=== PATIENT | female | born 1960 | race Hispanic/Latino ===

== ENCOUNTER 2018-10-10 03:56 | Emergency (ER) | payer BC, OTHER ==
[~2018-10-10] VITALS: Ht 162.6 cm; Wt 82.6 kg
[~2018-10-10 03:56] MED LIST: CEFDINIR250 MG/5 M PO; LISINOPRIL20 MG; PANTOPRAZOLE SO40 MG PO
--- OUTSIDE RECORDS SUMMARY | 2018-10-10 03:58 | XMS REPORT | Clinical Summary ---
Author Author MALVIN [facility] Organization [facility] Address Unknown Phone Unavailable Care Team Providers Care Disc Inspector Name Role Phone Yobany--Hermann Lincoln PCP Allergies No Known Allergies Medications End Date Status Medication Sig Dispensed Refills Start Date Active losartan (COZAAR) 50 MG Take 50 mg by 0 tablet mouth daily. Active omeprazole (PRILOSEC) 20 Take 20 mg by 0 MG capsule mouth as needed. Active acetaminophen (TYLENOL) Take 325 mg 0 325 MG tablet by mouth as needed for Pain. Active Problems Problem Noted Date Primary osteoarthritis of left knee 12/25/2017 Acute lateral meniscus tear of left knee, initial encounter 12/25/2017 Encounters Care Team Description Date Type Specialty Kei Santo MD 12/25/2017 Anesthesia Event Thomas Nowak MD ARTHROSCOPY,KNEE MENISCECTOMY 12/25/2017 Surgery Thomas Nowak MD 12/25/2017 Hospital Encounter Thomas Nowak MD 12/19/2017 Hospital Pre-Admission Testing Encounter 12/19/2017 Orders Only General Internal Medicine Paulino Taylor MD 11/26/2017 Anesthesia Event after 10/09/2017 Social History Date Tobacco Use Types Packs/Day Years Used Never Smoker Smokeless Tobacco: Never Used Alcohol Use Drinks/Week oz/Week Comments No Sex Assigned at Date Recorded Not on file Industry Job Start Date Occupation Not on file Not on file Not on file Travel End Travel History Travel Start No recent travel history available. Last Filed Vital Signs Time Taken Vital Sign Reading 12/25/2017 2:00 PM CDT Blood Pressure 94/45 12/25/2017 2:00 PM CDT Pulse 85 12/25/2017 2:00 PM CDT Temperature 36.7 C (98 F) 12/25/2017 2:00 PM CDT Respiratory Rate 17 12/25/2017 2:00 PM CDT Oxygen Saturation 96% - Inhaled Oxygen - Concentration 12/25/2017 7:41 AM CDT Weight 84.4 kg (186 lb) 12/25/2017 7:41 AM CDT Height 160 cm (5' 3") 12/25/2017 7:41 AM CDT Body Mass Index 32.95 Plan of Treatment Not on file Procedures Comments Procedure Name Priority Date/Time Associated Diagnosis ARTHROSCOPY,KNEE 12/25/2017 Tear of lateral meniscus SYNOVECTOMY 8:25 AM CDT of left knee, unspecified tear type, unspecified whether old or current tear, initial encounter Osteoarthritis of left knee, unspecified osteoarthritis type Special Needs (ARTHREX) ARTHROSCOPY,KNEE 12/25/2017 Tear of lateral meniscus CHONDROPLASTY SHAVING 8:25 AM CDT of left knee, unspecified tear type, unspecified whether old or current tear, initial encounter Osteoarthritis of left knee, unspecified osteoarthritis type Special Needs (ARTHREX) ARTHROSCOPY,KNEE 12/25/2017 Tear of lateral meniscus LOOSE/FOREIGN BODY 8:25 AM CDT of left knee, unspecified tear type, unspecified whether old or current tear, initial encounter Osteoarthritis of left knee, unspecified osteoarthritis type Special Needs (ARTHREX) ARTHROSCOPY,KNEE 12/25/2017 Tear of lateral meniscus MENISCECTOMY 8:25 AM CDT of left knee, unspecified tear type, unspecified whether old or current tear, initial encounter Osteoarthritis of left knee, unspecified osteoarthritis type Special Needs (ARTHREX) ECG 12-LEAD Routine 12/19/2017 12:17 PM CDT Procedure Note - Interface, External Ris In - 12/19/2017 1:45 PM CDT Ventricula r Rate 55 BPM Atrial Rate 55 BPM P-R Interval 166 ms QRS Duration 82 ms Q-T Interval 416 ms QTC Calculatio n(Bazett) 397 ms P [place] 37 degrees R [place] -12 degrees T [place] 7 degrees Sinus bradycardi a Low voltage QRS Borderline ECG No previous ECGs available ECG 12-LEAD Routine 12/19/2017 12:17 PM CDT BUN AND CREATININE Routine 12/19/2017 12:16 PM CDT ELECTROLYTE PANEL Routine 12/19/2017 12:16 PM CDT HEMOGLOBIN Routine 12/19/2017 12:16 PM CDT after 10/09/2017 Results * ECG 12 lead (12/19/2017 12:17 PM CDT) Narrative Performed At Ventricular Rate 55 BPM GE MUSE Atrial Rate 55 BPM P-R Interval 166 ms QRS Duration 82 ms Q-T Interval 416 ms QTC Calculation(Bazett) 397 ms P [place] 37 degrees R [place] -12 degrees T [place] 7 degrees Sinus bradycardia Low voltage QRS Borderline ECG No previous ECGs available Confirmed by MD JIMENES JORGE ([id number]) on 12/19/2017 2:06:30 PM Procedure Note Interface, External Ris In - 12/19/2017 2:06 PM CDT Ventricular Rate 55 BPM Atrial Rate 55 BPM P-R Interval 166 ms QRS Duration 82 ms Q-T Interval 416 ms QTC Calculation(Bazett) 397 ms P [place] 37 degrees R [place] -12 degrees T [place] 7 degrees Sinus bradycardia Low voltage QRS Borderline ECG No previous ECGs available Confirmed by MD JIMENES JORGE ([id number]) on 12/19/2017 2:06:30 PM Performing Organization Address City/[facility] Phone Number GE MUSE * BUN and Creatinine (12/19/2017 12:16 PM CDT) BUN 15 7 - 21 mg/dL [facility] Creatinine 0.79 0.57 - 1.25 mg/dL [facility] EGFR 74Comment: ESTIMATED GFR IS mL/min/1.73 sq m [facility] NOT ACCURATE CREATININE [facility] CLEARANCE IN PREDICTING GLOMERULAR FILTRATION RATE. ESTIMATED GFR IS NOT APPLICABLE FOR DIALYSIS PATIENTS. Specimen Blood Performing Organization Address City/[facility]/Zipcode Phone Number [facility] [address] [place] [address] MED[facility]ENTER * Hemoglobin (12/19/2017 12:16 PM CDT) Hemoglobin 12.3 11.2 - 15.7 GM/DL [facility] Specimen Blood Performing Organization Address City/State/Zipcode Phone Number [facility] [address] [place], [place] [phone] [facility] * Electrolytes (12/19/2017 12:16 PM CDT) Sodium 144 136 - 145 meq/L [facility] Potassium 4.9 3.5 - 5.1 meq/L [facility] Chloride 106 98 - 107 meq/L [facility] CO2 30 (H) 22 - 29 meq/L [facility] Specimen Blood Performing Organization Address City/State/Zipcode Phone Number [facility] [address] [place] [address] [facility] after 10/09/2017 Insurance Payer Benefit Subscriber ID Type Phone Address Plan / Group [employer] [email or web address] xxxxxxxxxx [employer] E EXCHANGE Advance Directives For more information, please contact: [address] [address] Date Inactivated Comments Code Status Date Activated 12/25/2017 4:48 PM Full Code 12/25/2017 7:27 AM This code status was determined by: Patient
--- OUTSIDE RECORDS SUMMARY | 2018-10-10 03:59 | XMS REPORT ---
Author Author [facility] Address Unknown Phone Unavailable Care Team Providers Care Carbon Capture Power Plant Engineer Name Role Phone SHALONDA REN Unavailable Unavailable العراقيErnie KIERSTEN Unavailable Unavailable Payers Payer Name Policy Type Policy Number Effective Date Expiration Date Problems This patient has no known problems. Allergies, Adverse Reactions, Alerts Allergy Name Allergy Type Status Severity Reaction(s) Onset Date Inactive Date Treating Clinician Comments gabapentin DA Active [place] 2018-10-09 00:00:00 meclizine DA Active SV 2018-10-09 00:00:00 meclizine DA Active SV 2014-05-30 00:00:00 gabapentin DA Active [place] 2014-05-26 00:00:00 Medications This patient has no known medications. Results Test Description Test Time Test Comments Text Results Atomic Results Result Comments URINALYSIS COMPLETE 2018-10-09 13:49:00 UA COLOR (test code=COLU) YELLOW YELLOW UA APPEARANCE (test code=APPU) CLEAR CLEAR UA GLUCOSE DIPSTICK (test code=DGLUU) NORMAL mg/dL NEGATIVE UA BILIRUBIN DIPSTICK (test code=BILU) NEGATIVE mg/dL NEGATIVE UA KETONE DIPSTICK (test code=KETU) neg mg/dL NEGATIVE UA SPECIFIC GRAVITY (test code=SGU) 1.015 1.001-1.035 UA BLOOD DIPSTICK (test code=FLOYD) 25 (1+) Gustavo/uL NEGATIVE UA PH DIPSTICK (test code=ERIC) 6.5 5.0-8.0 UA PROTEIN DIPSTICK (test code=PROU) neg mg/dL Neg-15 UA UROBILINIOGEN DIPSTICK (test code=URO) norm mg/dL 0.0-0.2 UA NITRITE DIPSTICK (test code=ELODIA) NEGATIVE NEGATIVE UA LEUKOCYTE ESTERASE DIPSTICK (test code=LEUU) 25 (Trace) uL NEGATIVE UA WBC (test code=WBCU) 0-5 per HPF 0-5 IN SOME URINARY TRACT INFECTIONS THERE MAY NOT BE ENOUGHWBCs IN THE URINE TO TRIGGER AN AUTOMATIC (REFLEX) URINECULTURE. A SEPERATE ORDER FOR URINE CULTURE IS RECOMMENDEDIF THERE IS STRONG SUPPORT FOR A URINARY TRACT INFECTIONCLINICALLY. UA RBC (test code=RBCU) 3-5 per HPF 0-5 UA EPITHELIAL CELLS (test code=EPIU) Few (2-5/hpf) per HPF Few UA BACTERIA (test code=BACU) FEW per HPF NONE UA MUCUS (test code=MUCU) FEW per LPF NONE-FEW Urine Source? Clean CatchURINALYSIS [id number] 13:41:00* Test Item Value Reference Range Comments UA COLOR (test code=COLU) YELLOW YELLOW UA APPEARANCE (test code=APPU) CLEAR CLEAR UA GLUCOSE DIPSTICK (test code=DGLUU) NORMAL mg/dL NEGATIVE UA BILIRUBIN DIPSTICK (test code=BILU) NEGATIVE mg/dL NEGATIVE UA KETONE DIPSTICK (test code=KETU) neg mg/dL NEGATIVE UA SPECIFIC GRAVITY (test code=SGU) 1.015 1.001-1.035 UA BLOOD DIPSTICK (test code=FLOYD) 25 (1+) Gustavo/uL NEGATIVE UA PH DIPSTICK (test code=ERIC) 6.5 5.0-8.0 UA PROTEIN DIPSTICK (test code=PROU) neg mg/dL Neg-15 UA UROBILINIOGEN DIPSTICK (test code=URO) norm mg/dL 0.0-0.2 UA NITRITE DIPSTICK (test code=ELODIA) NEGATIVE NEGATIVE UA LEUKOCYTE ESTERASE DIPSTICK (test code=LEUU) 25 (Trace) uL NEGATIVE UA WBC (test code=WBCU) per HPF 0-5 Urine Source? Clean CatchSCR MAMM BILATERAL JALYN CAD [id number] 10:31:05 - SCR MAMM BILATERAL JALYN CAD DIGITALBILATERAL DIGITAL SCREENING MAMMOGRAM 3D/2D WITH CAD: 08/30/2018CLINICAL: Asymptomatic. Digital breast tomosynthesis was p erformed in addition to routine CC and MLO views. Current mammographic images w ere evaluated by either a [employer]rena [employer] Lily M-Vu or a Zmanda ImageChecker CAD (computer ai ded detection system). Comparison is made to exams dated 08/02/2017 mammogram, 07/10/2016 mammogram, and 10/11/2015 mammogram - [facility]-. The tissue of both breasts is heterogeneously dense. This may lower the sensitivity of mammography. There are benign vascular calcifications in both breasts. Ther e also are benign calcifications in the left breast. No suspicious mass, zaira ectural distortion, malignant type calcification, or lymph node abnormality dete cted. Breast architecture is stable compared to prior exams.IMPRESSION: BENIGNT here is no mammographic evidence of malignancy. Resume annual screening mammogra phy in one year. Carline quick/penrad:09/02/2018 10:31:05 Imaging T echnologist: Kathleen CRAIG, [facility]-FWletter sent: BIRADS 1- 2 Normal Mammogram BI-RADS: 2 [id number] 14:13:00* Test Item Value Reference Range Comments SODIUM (BEAKER) (test iymh=624) 144 meq/L 136-145 POTASSIUM (BEAKER) (test avyr=920) 4.9 meq/L 3.5-5.1 CHLORIDE (BEAKER) (test midc=116) 106 meq/L 98-107 CO2 (BEAKER) (test qlkz=975) 30 meq/L 22-29 BUN AND [id number] 14:13:00* Test Item Value Reference Range Comments BLOOD UREA NITROGEN (BEAKER) (test vsht=026) 15 mg/dL 7-21 CREATININE (BEAKER) (test vgyt=678) 0.79 mg/dL 0.57-1.25 EGFR (BEAKER) (test afzy=6556) 74 mL/min/1.73 sq m ESTIMATED GFR IS NOT ACCURATE CREATININE CLEARANCE IN PREDICTING GLOMERULAR FILTRATION RATE. ESTIMATED GFR IS NOT APPLICABLE FOR DIALYSIS PATIENTS. [id number] 13:31:00* Test Item Value Reference Range Comments HEMOGLOBIN (BEAKER) (test kodv=220) 12.3 GM/DL 11.2-15.7 US ABDOMEN COMPLETE [facility] [address] [address] Patient Name: JOHN PULIDO MR #: [id number] : 1960 Age/Sex: 56/F Req #: [id number] Adm Physician: Ordered by: KIERSTEN العراقي MD Report #: [id number] Location: US Room/Bed: Procedure: [id number] US/US ABDOMEN COMPLETE Ex am Date: Exam Time: REPORT STATUS: Signed PROCEDURE: ABDOMINAL ULTRASOUND COMPARISON: 12/14/2016. INDICATIONS: Ab dominal Pain TECHNIQUE: Hartley-scale and color sonographic images were obtai tc of the abdomen in transverse and sagittal planes. FINDINGS: Liver: 11.1 cm in length in right midclavicular line. Small left hepatic s imple cyst is again noted, 8 mm in maximum diameter, unchanged. Normal parenc hymal echogenicity. No masses. Main portal vein: 0.9 cm in caliber. Patent. he patopetal flow Gallbladder: Surgically removed. Common Bile Duct: 0.6 cm in caliber. Right kidney: 10.3 cm in length. Normal renal cortical echoge nicity. No focal mass lesion or hydronephrosis. Left kidney: 11.5 cm in carrie gth. Normal renal cortical echogenicity. No focal mass lesion or hydronephros is. Spleen: 9.3 cm in length. Pancreas: The visualized portions are unre markable. Inferior vena cava: Patent Aorta: Non-aneurysmal Ascites: No ne CONCLUSION: Stable simple cyst in the left hepatic lobe. Sta tus post cholecystectomy. Otherwise unremarkable abdominal ultrasound. Dictated by: Ottoniel Tripathi M.D. on 04/13/2017 at 11:29 Electronically appro yonathan by: Ottoniel Tripathi M.D. on 04/13/2017 at 11:29 Dictated By: BLAKE TRIPATHI MD [id number] Trans cribed By: THU on 04/13/17 1129 COPY TO: KIERSTEN العراقي MD
[2018-10-10 05:30] LABS: BASOPHILS % 0.6 % (0.0-1.0); EOSINOPHILS # (AUTO) 0.1 (0.0-0.4); EOSINOPHILS % 1.3 % (0.0-6.0); HEMATOCRIT 35.4 % (34.2-44.1); HEMOGLOBIN 12.1 g/dL (12.0-16.0); LYMPHOCYTES # (AUTO) 0.7 (1.0-3.2); LYMPHOCYTES % 15.8 % (18.0-39.1); MEAN CORPUSCULAR HEMOGLOBIN 30.1 pg (28-32); MEAN CORPUSCULAR HGB CONC 34.2 g/dL (31-35); MEAN CORPUSCULAR VOLUME 88.1 fL (81-99); MONOCYTES # (AUTO) 0.2 (0.2-0.8); MONOCYTES % 5.1 % (4.4-11.3); NEUTROPHILS # (AUTO) 3.6 (2.1-6.9); PLATELET COUNT 201 x10e3/uL (140-360); RED BLOOD COUNT 4.02 x10e6/uL (3.6-5.1)
[2018-10-10] MEDS ORDERED: LOSARTAN-HCTZ1 EAC2 (05:32)
[2018-10-10] MEDS ORDERED: OMEPRAZOLE40 MG (05:32)
[2018-10-10] MEDS ORDERED: VITAMIN D250000 UNIT (05:32)
[2018-10-10 05:58] LABS: CLARITY,URINE HAZY (CLEAR); COLOR,URINE AMBER (YELLOW)
[2018-10-10 05:59] LABS: LEUKOCYTE ESTERASE ,URINE 2+ (NEGATIVE); NITRITE,URINE NEGATIVE (NEGATIVE)
[2018-10-10 06:00] LABS: KETONES,URINE NEGATIVE (NEGATIVE); PROTEIN,URINE DIPSTICK 1+ (NEGATIVE); URINE UROBILINOGEN 0.2 mg/dL (0.2 - 1)
[2018-10-10 06:01] LABS: BILIRUBIN,URINE 2+ (NEGATIVE)
[2018-10-10 06:04] LABS: BACTERIA,URINE MANY /HPF; RBC,URINE 21-50 /HPF (0-5); WBC,URINE (MAN) >50 /HPF (0-5)
[2018-10-10 06:04] LABS: ALANINE AMINOTRANSFERASE 381 IU/L (0-55); ALBUMIN 3.2 g/dL (3.5-5.0); ALKALINE PHOSPHATASE 278 IU/L (40-150); ANION GAP 11.6 mmol/L (8-16); BLOOD UREA NITROGEN 16 mg/dL (7-26); BUN/CREATININE RATIO 22 (6-25); CALCIUM 9.1 mg/dL (8.4-10.2); CARBON DIOXIDE 26 mmol/L (22-29); CHLORIDE 102 mmol/L (98-107); CREATININE, SERUM 0.72 mg/dL (0.57-1.11); EST GLOMERULAR FILTRATION RATE > 60 ML/MIN (60-); GLUCOSE 100 mg/dL (74-118); POTASSIUM 3.6 mmol/L (3.5-5.1); SODIUM 136 mmol/L (136-145)
[2018-10-10 06:05] LABS: EPITHELIAL CELLS,URINE MANY /LPF
[2018-10-10 06:06] LABS: RENAL EPITHELIAL CELLS,URINE FEW; TRANSITIONAL EPI CELLS,URINE FEW
[2018-10-10 06:18] LABS: ALBUMIN/GLOBULIN RATIO 0.9 (0.8-2.0)
[2018-10-10] MEDS ORDERED: IOPAMIDOL 370 MG/ML 200 ML INFUS..BTL INJ ONE (06:21)
[2018-10-10] MEDS ORDERED: SODIUM CHLORIDE 0.9% 50ML 50 ML ONE (06:21)
[2018-10-10] MEDS ORDERED: CEFTRIAXONE SOD 1 GM/NS 50 ML 50 ML IV SCH (06:30)
--- NOTE | 2018-10-10 06:55 | Diagnostic Imaging Report ---
EXAM: CT Abdomen and Pelvis WITH contrast INDICATION: Back pain and abdominal pain. ^abd pain COMPARISON: None. TECHNIQUE: Abdomen and pelvis were scanned utilizing a multidetector helical scanner from the lung base to the pubic symphysis after administration of IV contrast. Coronal and sagittal reformations were obtained. Routine protocol was performed. Scan was performed when during portal venous phase. IV CONTRAST: 100 mL of Isovue 370 ORAL CONTRAST: Water COMPLICATIONS: None RADIATION DOSE: Total DLP: 548.91 mGy*cm Estimated effective dose: (DLP x 0.015 x size factor) mSv Dose modulation, iterative reconstruction, and/or weight based adjustment of the mA/kV was utilized to reduce the radiation dose to as low as reasonably achievable. FINDINGS: LINES and TUBES: None. LOWER THORAX: There is bibasilar atelectasis. HEPATOBILIARY: No focal hepatic lesions. There is intra- and extra- hepatic biliary dilation likely post cholecystectomy reservoir effect. GALLBLADDER: Cholecystectomy. SPLEEN: No splenomegaly. PANCREAS: No focal masses or ductal dilatation. ADRENALS: No adrenal nodules KIDNEYS/URETERS: Kidneys enhance symmetrically. No hydronephrosis. No cystic or solid mass lesions. No stones. GI TRACT: No abnormal distention, wall thickening, or evidence of bowel obstruction. There are diverticula within the colon without evidence of diverticulitis. Appendix is normal. PELVIC ORGANS/BLADDER: Unremarkable. LYMPH NODES: No lymphadenopathy. VESSELS: Unremarkable. PERITONEUM / RETROPERITONEUM: No free air or fluid. BONES: Unremarkable. SOFT TISSUES: Foci of soft tissue stranding in the gluteal soft tissues likely related to subcutaneous injections. IMPRESSION: No acute abnormalities. Signed by: DR. Gonzalo Mondragon MD on 10/10/2018 6:51 AM
--- NOTE | 2018-10-10 06:56 | NUR ---
WALKING ROUNDS WITH YAMILET MILLS
[2018-10-10] MEDS ORDERED: MACROBID 100 M100 MG PO (07:02)
[2018-10-10 07:17] VITALS: BP 134/66
[2018-10-10] MEDS ORDERED: KETOROLAC TROMETHAMINE 30 MG/ML VIAL IV STA (07:21)
== END 2018-10-10 07:37 | disposition home or self-care (01) ==
LOC: ER 03:56
DX: R10.9 Unspecified abdominal pain (principal); R11.0 Nausea; N30.91 Cystitis, unspecified with hematuria
CPT/HCPCS: 36415; 74177; 80053; 81001; 83605; 83690; 85025; 99284; J0696; J1885; Q9967

== ENCOUNTER → 2018-10-17 | Outpatient (CLI) | payer OTHER ==
[~2018-10-17] MED LIST changes: +LOSARTAN-HCTZ1 EAC2; +MACROBID 100 M100 MG PO; +OMEPRAZOLE40 MG; +VITAMIN D250000 UNIT
--- NOTE | 2018-10-17 16:40 | Diagnostic Imaging Report ---
MRCP CPT code: 74330 History: Right upper quadrant pain for 2 weeks, elevated LFTs Comparison: CT abdomen/pelvis 10/10/2018, right upper quadrant ultrasound 04/13/2017. Technique: Multiplanar, multisequence images of the abdomen were obtained per MRCP protocol. 3D volume rendered reformation images of the biliary tree were performed. No intravenous gadolinium was administered. Findings: Images are motion degraded. There is diffuse intrahepatic biliary ductal dilatation, particularly of the central intrahepatic ducts. No evidence of beading or narrowing. The common hepatic duct measures 1.3 cm in diameter. The cystic duct is mildly prominent with a low insertion. The common bile duct measures 1.4 cm in diameter with squaring of the shoulders at the ampulla. An intraluminal filling defect in the distal common bile duct measures 6 mm (series 8, image 13, series 11, image 5). By CT, the common bile duct measured 11 mm in diameter. The pancreas duct is visible throughout its course and measures 4 mm just above the ampulla and in the head. The pancreas duct in the body and tail are normal in diameter. The gallbladder is absent. Liver: Normal signal. A cyst in the left lobe identified on ultrasound is in segment 2 and abuts the capsule. This measures 6 mm. Spleen: Normal size and signal. No mass Pancreas: Normal signal. No mass Kidneys: No hydronephrosis. No mass Adrenal glands: No mass Lymph nodes: No enlarged abdominal or periaortic lymph nodes. No enlarged lymph nodes in the small bowel mesentery. Bowel: Stomach and visualized portions of the small bowel and large bowel are normal in diameter with normal wall thickness. The visualized portion of the appendix is normal. Pelvis: Visualized pelvic organs are unremarkable. Vasculature: Portal vein, IVC, and aorta have normal flow voids. 2 arteries supply the right kidney. A single artery supplies the left kidney. Peritoneum/retroperitoneum: No free fluid or fluid collection. Lung bases: Clear. The heart is enlarged. No pericardial or pleural effusions. Bones: Normal marrow signal. No focal osseous lesions. Soft tissues: Unremarkable. IMPRESSION: 1. Choledocholithiasis with a 6 mm stone in the distal common bile duct. Cholecystectomy. 2. Significant intrahepatic and intrahepatic biliary ductal dilatation. 3. Mild prominence of the pancreas duct in the head. 4. Subcentimeter cyst in the left lobe of the liver is stable. Thank you for your referral. Signed by: Dr. Ros Larson MD on 10/17/2018 4:37 PM
== END ==
LOC: MRI 09:43
PROVIDERS: ATTEND Physician Assistant
DX: R74.8 Abnormal levels of other serum enzymes (principal)
CPT/HCPCS: 74181

== ENCOUNTER 2019-04-25 13:46 | Inpatient (IN) | payer OTHER ==
[~2019-04-25] VITALS: Ht 157.5 cm; Wt 82.1 kg
--- OUTSIDE RECORDS SUMMARY | 2019-04-25 13:50 | XMS REPORT | Clinical Summary ---
Author Author [facility] Organization [facility] Address Unknown Phone Unavailable Care Team Providers Care Sap Solution Manager Consultant Name Role Phone Haywood--Hermann Lincoln PCP Allergies No Known Allergies Medications [...] tear of left knee, initial encounter 12/25/2017 Social History Date Tobacco Use Types Packs/Day Years Used Never Smoker Smokeless Tobacco: Never Used Alcohol Use Drinks/Week oz/Week Comments No Sex Assigned at Date Recorded Not on file Industry Job Start Date Occupation Not on file Not on file Not on file Travel End Travel History Travel Start No recent travel history available. Last Filed Vital Signs Not on file Plan of Treatment Not on file Results Not on fileafter 04/24/2018 Insurance Payer Benefit Subscriber ID Type Phone Address Plan / Group [employer] K[employer]EDY xxxxxxxxxx [employer] E EXCHANGE Advance Directives For more information, please contact: [facility] [address] [place] [address] Date Inactivated Comments Code Status Date Activated 12/25/2017 4:48 PM Full Code 12/25/2017 7:27 AM This code status was determined by: Patient
[2019-04-25] MEDS ORDERED: SODIUM CHLORIDE 0.9% 1000ML 1,000 ML IV SCH (14:15)
[2019-04-25] MEDS ORDERED: IBUPROFEN 400 MG TAB PO ONE (14:30)
[2019-04-25 14:56] LABS: ALBUMIN 3.6 g/dL (3.5-5.0); ALBUMIN/GLOBULIN RATIO 0.9 (0.8-2.0); ANION GAP 11.6 mmol/L (8-16); CALCIUM 9.4 mg/dL (8.4-10.2); CREATININE, SERUM 1.05 mg/dL (0.57-1.11); POTASSIUM 3.6 mmol/L (3.5-5.1)
[2019-04-25 15:05] LABS: BASOPHILS % 0.1 % (0.0-1.0); EOSINOPHILS # (AUTO) 0.1 (0.0-0.4); EOSINOPHILS % 1.7 % (0.0-6.0); HEMOGLOBIN 11.7 g/dL (12.0-16.0); LYMPHOCYTES # (AUTO) 0.6 (1.0-3.2); LYMPHOCYTES % 8.9 % (18.0-39.1); MEAN CORPUSCULAR HEMOGLOBIN 30.3 pg (28-32); MEAN CORPUSCULAR HGB CONC 33.4 g/dL (31-35); MEAN CORPUSCULAR VOLUME 90.7 fL (81-99); MONOCYTES # (AUTO) 0.5 (0.2-0.8); MONOCYTES % 6.3 % (4.4-11.3); NEUTROPHILS # (AUTO) 5.9 (2.1-6.9); NEUTROPHILS % 82.7 % (38.7-80.0); PLATELET COUNT 159 x10e3/uL (140-360); RED BLOOD COUNT 3.86 x10e6/uL (3.6-5.1); RED CELL DISTRIBUTION WIDTH 13.3 % (11.7-14.4)
[2019-04-25] MEDS ORDERED: DEXAMETHASONE SOD PHOS 10 MG/1 ML VIAL IV ONE (15:15)
[2019-04-25] MEDS ORDERED: ALBUTEROL/IPRATROPIUM 3 ML NEB NEB ONE (15:15)
[2019-04-25 15:18] LABS: BILIRUBIN,URINE NEGATIVE (NEGATIVE); CLARITY,URINE CLOUDY (CLEAR); COLOR,URINE YELLOW (YELLOW); KETONES,URINE NEGATIVE (NEGATIVE); LEUKOCYTE ESTERASE ,URINE MODERATE (NEGATIVE); NITRITE,URINE NEGATIVE (NEGATIVE); PROTEIN,URINE DIPSTICK TRACE (NEGATIVE); URINE UROBILINOGEN 0.2 mg/dL (0.2 - 1)
[2019-04-25 15:23] LABS: STREPTOCOCCUS GRP A ANTIGEN POSITIVE (NEGATIVE)
[2019-04-25 15:24] LABS: AMORPHOUS SEDIMENT,URINE MODERATE (FEW); BACTERIA,URINE MANY /HPF; EPITHELIAL CELLS,URINE MODERATE /LPF
[2019-04-25 15:36] LABS: INFLUENZAE A&B ANTIGEN (RAPID) POSITIVE FLU A (NEGATIVE)
[2019-04-25 15:47] LABS: CREATINE KINASE MB 0.2 ng/mL (0-5.0)
--- NOTE | 2019-04-25 16:04 | Diagnostic Imaging Report ---
Chest, PA and lateral. History: Sepsis. Comparison: None available. Discussion: The heart is within normal limits size. The cardiomediastinal contours are unremarkable. There is a patchy opacity at the left base. The right lung is grossly clear. There is no sizable pleural effusion or pneumothorax. There are mild degenerative changes of the thoracic spine. IMPRESSION: Patchy opacity at the left base may be secondary to pneumonitis or atelectasis. Signed by: Regis Pennington MD on 04/25/2019 4:00 PM
[2019-04-25] MEDS ORDERED: IPRATROPIUM BROMIDE 0.02% 2.5 ML NEB NEB PRN (17:15)
[2019-04-25] MEDS ORDERED: VANCOMYCIN HCL 1GM/NS 250 ML BAG IV SCH (17:15)
[2019-04-25] MEDS ORDERED: ACETAMINOPHEN 325 MG TAB PO PRN (17:15)
[2019-04-25] MEDS ORDERED: ALBUTEROL SULF 0.083% NEB SOLN 3 ML NEB NEB PRN (17:15)
[2019-04-25] MEDS ORDERED: VANCOMYCIN 1GM/NS 250 ML 250 ML IV SCH (17:30)
[2019-04-25] MEDS: CEFTRIAXONE SOD 1 GM/NS 50 ML 50 ML IV SCH (17:31)
[2019-04-25] MEDS: AZITHROMYCIN 500MG/NS 250 ML 250 ML IV SCH (17:31)
--- OUTSIDE RECORDS SUMMARY | 2019-04-25 17:31 | XMS REPORT | Clinical Summary ---
Author Author [facility] Organization [facility] Address Unknown Phone Unavailable Care Team Providers Care Inside Account Representative Name Role Phone Haywood--Hermann Lincoln PCP Allergies [...] Advance Directives For more information, please contact: [facility] [address] [place] [address] Date Inactivated Comments Code Status Date Activated 12/25/2017 4:48 PM Full Code 12/25/2017 7:27 AM This code status was determined by: Patient
[2019-04-25] MEDS: OSELTAMIVIR PHOSPHATE 75 MG CAP PO SCH (17:53)
[2019-04-25] MEDS: SODIUM CHLORIDE 0.9% 1000ML 1,000 ML IV SCH (17:53)
[2019-04-25] MEDS ORDERED: SODIUM CHLORIDE 0.9% 1000ML 1,000 ML IV STA (19:46)
[2019-04-25] MEDS ORDERED: SODIUM CHLORIDE 0.9% 1000ML 1,000 ML ONE (19:48)
[2019-04-25] MEDS ORDERED: SODIUM CHLORIDE 0.9% 1000ML 1,000 ML IV ONE (20:00)
--- NOTE | 2019-04-25 20:37 | NUR ---
CONSULT TO DR HERCULES CALLED BY DROP WIRE BUILDER NUNO AT THIS TIME.
[2019-04-25 20:58] VITALS: BP 93/53
[2019-04-25 21:17] VITALS: BP 93/53
[2019-04-26] VITALS (7 sets, daily range): BP systolic 101–120; BP diastolic 51–66
[2019-04-26] MEDS: SODIUM CHLORIDE 0.9% 1000ML 1,000 ML IV SCH ×3 (01:08→22:28)
[2019-04-26 05:42] LABS: BASOPHILS % 0.2 % (0.0-1.0); HEMATOCRIT 36.5 % (34.2-44.1); HEMOGLOBIN 11.7 g/dL (12.0-16.0); LYMPHOCYTES # (AUTO) 0.7 (1.0-3.2); LYMPHOCYTES % 15.3 % (18.0-39.1); MEAN CORPUSCULAR HEMOGLOBIN 29.8 pg (28-32); MEAN CORPUSCULAR HGB CONC 32.1 g/dL (31-35); MEAN CORPUSCULAR VOLUME 93.1 fL (81-99); MONOCYTES # (AUTO) 0.2 (0.2-0.8); MONOCYTES % 4.8 % (4.4-11.3); NEUTROPHILS # (AUTO) 3.5 (2.1-6.9); NEUTROPHILS % 79.5 % (38.7-80.0); PLATELET COUNT 167 x10e3/uL (140-360); RED BLOOD COUNT 3.92 x10e6/uL (3.6-5.1); RED CELL DISTRIBUTION WIDTH 13.6 % (11.7-14.4)
[2019-04-26 05:59] LABS: ALANINE AMINOTRANSFERASE 11 IU/L (0-55); ALBUMIN 2.9 g/dL (3.5-5.0); ALBUMIN/GLOBULIN RATIO 0.8 (0.8-2.0); ALKALINE PHOSPHATASE 60 IU/L (40-150); ANION GAP 12.8 mmol/L (8-16); BLOOD UREA NITROGEN 14 mg/dL (7-26); BUN/CREATININE RATIO 19 (6-25); CARBON DIOXIDE 23 mmol/L (22-29); CHLORIDE 108 mmol/L (98-107); CREATININE, SERUM 0.74 mg/dL (0.57-1.11); EST GLOMERULAR FILTRATION RATE > 60 ML/MIN (60-); GLUCOSE 133 mg/dL (74-118); POTASSIUM 3.8 mmol/L (3.5-5.1); SODIUM 140 mmol/L (136-145)
--- NOTE | 2019-04-26 07:10 | NUR ---
Received patient lying in bed with eyes open. Respiration even and unlabored without SOB. Call light in reach.
--- NOTE | 2019-04-26 07:21 | NUR ---
BEDSIDE SHIFT REPORT GIVEN TO ONCOMING NURSE.PT RESTING IN BED WITH NO S/S OF DISTRESS.
[2019-04-26] MEDS: OSELTAMIVIR PHOSPHATE 75 MG CAP PO SCH ×2 (08:36→16:26)
[2019-04-26] MEDS ORDERED: PNEUMOCOCCAL VACCINE POLYVALENT 23 MCG/0.5 ML VIAL IM NR (10:45)
[2019-04-26] MEDS ORDERED: INFLUENZA VIRUS VAC SPLIT INJ 0.5 ML SYR IM NR (10:45)
[2019-04-26] MEDS ORDERED: TAMIFLU75 MG PO (11:36)
[2019-04-26] MEDS ORDERED: KEFLEX500 MG PO (11:37)
--- NOTE | 2019-04-26 14:39 | Consultation ---
DATE OF CONSULTATION: 04/26/2019 INFECTIOUS DISEASE CONSULT REASON FOR CONSULTATION: Pneumonia, influenza, urinary tract infection. Thank you, Dr. Palomo, for asking me to see this patient. HISTORY OF PRESENT ILLNESS: The patient is a 58-year-old woman referred for pneumonia, influenza, and urinary tract infection. She presented to the emergency department with fever, chills, chest congestion and cough with sputum production. Also, she has had body aches, back pain and lower chest pain with deep breathing as well. She denies sore throat and dysuria. The patient took care of her grandchild who was sick with the flu prior to onset of her symptoms. In the emergency department, she was noted to have temperature of 102.6 degrees Fahrenheit, pulse rate 106, respiratory rate 22, blood pressure 113/58, and oxygen saturation 96% on room air. Initial laboratory studies showed blood leukocyte count of 7100 with 82.7% neutrophils, BUN 13, creatinine 1.05. Influenza antigen test was positive for influenza type A. Also the group A streptococcal screen of the throat was positive. Chest x-ray showed patchy opacity at the base. PAST MEDICAL HISTORY: Hypertension. PAST SURGICAL HISTORY: Cholecystectomy and left knee arthroscopic surgery. ALLERGIES: MORPHINE, WHICH CAUSED HALLUCINATION. MEDICATIONS: See MAR. The current antimicrobials are oseltamivir 75 mg p.o. b.i.d., vancomycin 1 g IV piggyback q.24 hours, ceftriaxone 1 g IV piggyback q.24 hours and azithromycin 500 mg IV piggyback q.24 hours. IMMUNIZATION: The patient has not received influenza or pneumococcal vaccination. FAMILY HISTORY: Noncontributory. SOCIAL HISTORY: No alcohol, tobacco, or recreational drug use. REVIEW OF SYSTEMS: The patient feels better since admission and management. The fever has subsided. She still has lower chest discomfort, especially in the substernal area. She denies shortness of breath, hemoptysis, nausea, vomiting, diarrhea, abdominal pain, and dysuria. PHYSICAL EXAMINATION: GENERAL: No acute distress. VITAL SIGNS: T-max 102.6, pulse rate 51, respiratory rate 20, blood pressure 114/66, weight 181 pounds. HEENT: Normocephalic. There is no icterus or injection of conjunctiva. There is no ear or nasal discharge. Moist oral mucosa. No pharyngeal erythema or exudate. NECK: Supple. No meningismus. LUNGS: Decreased breath sounds bilaterally. HEART: Normal S1 and S2. Regular. ABDOMEN: Soft and nontender. EXTREMITIES: There is no edema, clubbing, or cyanosis. SKIN: There is no acute erythema. RADIATOR CORE TESTER: Awake, alert, and oriented to person, place, and time. Nonfocal. LABORATORY AND DIAGNOSTICS: WBC 4370, hemoglobin 11.7, platelets 167,000, neutrophils 79.5, lymphocytes 15.3, monocytes 4.8, eosinophils 0, and basophils 0.2. BUN 14, creatinine 0.74. Blood culture is pending. Urine culture collected for unknown indication is pending. IMPRESSION: 1. Influenza type A, present on admission. 2. Community-acquired pneumonia, present on admission. 3. Positive group A Streptococcus screen of the throat. 4. Hypertension. PLAN: 1. Await blood culture result. 2. Stop vancomycin and administer influenza and pneumococcal vaccination prior to discharge. MD LATASHA López/MADELINE /[id number] MTDD
[2019-04-26] MEDS: CEFTRIAXONE SOD 1 GM/NS 50 ML 50 ML IV SCH (16:26)
[2019-04-26] MEDS: AZITHROMYCIN 500MG/NS 250 ML 250 ML IV SCH (17:11)
--- NOTE | 2019-04-26 19:10 | NUR ---
Report given to [facility] shift lead. Patient lying in bed with eyes open. Family members at bedside. Respiration even and unlabored without SOB. Call light in reach.
--- NOTE | 2019-04-26 22:50 | History and Physical ---
CLINICAL HISTORY: This is a 58-year-old woman admitted via the emergency room because of influenza A, possibly starting 5 days ago, recurrent urinary tract infection, and possible left lower lobe pneumonia. This patient apparently has had chronic urinary tract infection for approximately a year. She is usually treated with antibiotics. She has not seen a urologist. Apparently, she had urinary tract infection again 2 weeks ago and approximately 5 days ago caught the influenza A. She had worsening cough. Finally she came to the emergency room, where she was found to have possible left lower lobe pneumonia. She apparently had temperature up to 102 at home. Prior temperature at the time of presentation was normal. White count was normal. She was admitted for further evaluation and treatment. PAST MEDICAL HISTORY: Remarkable for hypertension treated with losartan. PAST SURGICAL HISTORY: Include cholecystectomy, left knee surgery. FAMILY HISTORY: Father from pneumonia. Mother from thyroid cancer. Sister has arrhythmia. Another sister had thyroid dysfunction as well as hypertension. PERSONAL AND SOCIAL HISTORY: Denied drinking, smoking. She works as a house keeper. REVIEW OF SYSTEMS: Noncontributory. PHYSICAL EXAMINATION: GENERAL: She is alert coherent, appears to be comfortable. VITAL SIGNS: Stable. CARDIAC: Jugular veins nondistended. S1 and S2 were regular. There are no appreciable murmurs. LUNGS: Clear. ABDOMEN: Soft. Bowel sounds are present. EXTREMITIES: Shows no cyanosis, clubbing, or edema. IMPRESSION: 1. Influenza A, possibly started 5 days ago, started on Tamiflu by the emergency room physician. 2. Recurrent urinary tract infection. 3. Possible left lower lobe pneumonia. 4. Hypertension. RECOMMENDATIONS: Antibiotics, Tamiflu, Infectious Disease opinion. Intravenous fluids. Possible discharge after cleared by Infectious Disease . MD BHAVAY Jacques/TRISHL /[id number] cc: Hermann Haywood MD
[2019-04-27 00:06] VITALS: BP 137/73
[2019-04-27] MEDS: SODIUM CHLORIDE 0.9% 1000ML 1,000 ML IV SCH ×3 (01:08→09:08)
[2019-04-27 04:42] VITALS: BP 106/65
--- NOTE | 2019-04-27 07:08 | NUR ---
REPORT GIVEN TO ONCOMING NURSE.WALKING ROUNDS MADE.PT RESTING IN BED WITH NO S/S OF DISTRESS.
--- NOTE | 2019-04-27 07:08 | NUR ---
Received patient lying in bed with eyes open. Respiration even and unlabored without SOB. Call light in reach.
[2019-04-27 07:36] VITALS: BP 149/67
[2019-04-27 08:00] VITALS: BP 149/67
[2019-04-27] MEDS: OSELTAMIVIR PHOSPHATE 75 MG CAP PO SCH (08:57)
[2019-04-27] MEDS ORDERED: PNEUMOCOCCAL VACCINE POLYVALENT 23 MCG/0.5 ML VIAL IM NR (09:15)
[2019-04-27] MEDS ORDERED: INFLUENZA VIRUS VAC SPLIT INJ 0.5 ML SYR IM NR (09:15)
[2019-04-27 11:56] VITALS: BP 157/73
[2019-04-27 16:00] VITALS: BP 144/68
--- NOTE | 2019-04-27 16:37 | NUR ---
Patient is to be discharge today as ordered. IV to Right AC discontinued, catheter tip intact, no bleeding noted.
--- NOTE | 2019-04-27 16:37 | NUR ---
Patient is transported via wheelchair to private auto. Belongings are with the patient's family member.
--- NOTE | 2019-04-28 02:55 | Discharge Summary ---
CLINICAL HISTORY: This is a 58-year-old woman, admitted via emergency room because of possible left lower lobe pneumonia, urinary tract infection, as well as influenza A. Please refer to my previous dictation concerning details of current details, past medical history, personal and social history, family history, review of systems, physical examination, and initial laboratory studies. HOSPITAL COURSE: The patient was treated with Tamiflu as well as cephalosporin antibiotics. Infectious disease consultation was obtained with Dr. Cruz Ramos. A urine culture showed contamination, was not conclusive for urinary tract infection. Influenza A test was positive. The patient was found to have possible left lower lobe pneumonia. She had no fever, no leukocytosis, was feeling fine except the nurse kept waking her up at night because of bradycardia. She was not on telemetry, but was on a bedside monitor, which was found not to be reliable. The patient does have a history of snoring, but denies any previous apnea. We discussed the possibility of sleep study on an outpatient basis via family doctor. DISCHARGE DIAGNOSES: 1. Influenza A, probably started 5 days prior to admission. 2. Urine contamination rather than urinary tract infection. 3. Possible left lower lobe pneumonia. 4. Apparent bradycardia noted on bedside monitor without telemetry, probably not reliable. If clinically indicated, consider sleep study on an outpatient basis. 5. History of hypertension. At the time of discharge, she was taking Tamiflu, Keflex, as well as losartan for her blood pressure. She was given azithromycin IV in the hospital. She did receive pneumococcal vaccine. She was instructed to follow up with Dr. Haywood in 1 week. MD BHAVYA Jacques/MODL /[id number] cc: Hermann Haywood MD
== END 2019-04-27 16:55 | disposition home or self-care (01) | DRG 195 ==
LOC: ER 13:46 → ERHOLD 17:08 → MED/SURG2 20:24
PROVIDERS: ADMIT Internal Medicine Cardiovascular Disease; ATTEND Internal Medicine Cardiovascular Disease
DX: J09.X1 Influenza due to identified novel influenza A virus with pneumonia (principal); J15.9 Unspecified bacterial pneumonia; J02.0 Streptococcal pharyngitis; Z83.3 Family history of diabetes mellitus; Z82.49 Family history of ischemic heart disease and other diseases of the circulatory system; I10 Essential (primary) hypertension; Z88.5 Allergy status to narcotic agent; Z80.8 Family history of malignant neoplasm of other organs or systems; R00.1 Bradycardia, unspecified
CPT/HCPCS: 36415; 71046; 80053; 81001; 82550; 82553; 83518; 83605; 84484; 85025; 87040; 87086; 87205; 87400; 90732; 94640; 99284; J0456; J0696; J1100; J3370; J7030

== ENCOUNTER → 2019-07-28 | Outpatient (CLI) | payer OTHER ==
[~2019-07-28] MED LIST changes: +KEFLEX500 MG PO; +TAMIFLU75 MG PO
--- NOTE | 2019-07-28 10:57 | Diagnostic Imaging Report ---
EXAM: Renal Ultrasound INDICATION: ^[id number] ^[id number] ^UTI COMPARISON: None TECHNIQUE: Transverse and longitudinal images of the kidneys and bladder were obtained. FINDINGS: Right Kidney: Length: 10.4 cm Appearance: Normal echogenicity. Collecting system: No hydronephrosis Stones: None Cyst/Mass: None Left Kidney: Length: 10.6 cm Appearance: Normal echogenicity. Collecting system: No hydronephrosis Stones: None Cyst/Mass: None Bladder: No mass or calculi. Estimated volume of 7 cc. IMPRESSION: No hydronephrosis or renal calculi. Signed by: Vilma Raza MD on 07/28/2019 10:53 AM
== END ==
LOC: US 09:43
PROVIDERS: ATTEND Urology
DX: N39.0 Urinary tract infection, site not specified (principal)
CPT/HCPCS: 76770

== ENCOUNTER 2020-02-22 00:08 | Emergency (ER) | payer OTHER ==
[~2020-02-22] VITALS: Ht 157.5 cm; Wt 82.1 kg
--- NOTE | 2020-02-22 01:05 | Emergency Department Note ---
History of Present Illnes History of Present Illness Chief Complaint: Abdominal Complaints History of Present Illness This is a 59 year old female C/O LOWER ABD PAIN WITH BURNING WITH URINATION AND HEMATURIA X1 WEEK; PT ALSO REPORTS NAUSEA; STATES SHE IS ON CIPRO AND SYMPTOMS NOT IMPROVING . Historian: Patient Arrival Mode: Car Onset (how long ago): day(s) (7) Location: SUPRA [facility]BIC Quality: PAIN, DYSURIA, Radiation: Reports non-radiation Severity: mild Onset quality: gradual Duration (how long): day(s) (7) Timing of current episode: constant Progression: unchanged Chronicity: new Context: Denies recent illness, Denies recent surgery Relieving factors: none Exacerbating factors: none Associated symptoms: Reports denies other symptoms Treatments prior to arrival: none Past Medical/Family History Physician Review I have reviewed the patient's past medical and family history. Any updates have been documented here. Past Medical History Recent Fever: No Clinical Suspicion of Infectio: No New/Unexplained Change in Ment: No Past Medical History: Hypertension, UTI's, GERD Other Medical History: HERNIA ARTHRITIS OSTEOPOROSIS Past Surgical History: Cholecysctectomy, Tubal Ligation Other Surgery: LEFT KNEE SURGERY Social History Smoking Cessation: Never Smoker Alcohol Use: None Any Illegal Drug Use: No Physically hurt or threatened: No Family History Family history of heart diseas: Yes Other Last Tetanus: OOD Review of Systems Review of Systems Constitutional: Reports no symptoms EENTM: Reports no symptoms Cardiovascular: Reports no symptoms Respiratory: Reports no symptoms Gastrointestinal: Reports no symptoms Genitourinary: Reports as per HPI Musculoskeletal: Reports no symptoms Integumentary: Reports no symptoms Neurological: Reports no symptoms Psychological: Reports no symptoms Endocrine: Reports no symptoms Hematological/Lymphatic: Reports no symptoms Physical Exam Related Data Allergies: Coded Allergies: morphine (Verified Allergy, Unknown, 04/25/19) Triage Vital Signs Vital Signs Date Time Temp Pulse Resp B/P (MAP) Pulse Ox O2 Delivery O2 Flow Rate FiO2 02/22/20 00:50 98.4 65 20 155/80 100 Room Air Vital signs reviewed: Yes Physical Exam CONSTITUTIONAL Constitutional: Present well-developed, Present well-nourished HENT HENT: Present normocephalic, Present atraumatic, Present oropharynx clear/moist, Present nose normal HENT L/R: Present left ext ear normal, Present right ext ear normal EYES Eyes: Reports PERRL, Reports conjunctivae normal NECK Neck: Present ROM normal PULMONARY Pulmonary: Present effort normal, Present breath sounds normal CARDIOVASCULAR Cardiovascular: Present regular rhythm, Present heart sounds normal, Present capillary refill normal, Present normal rate GASTROINTESTINAL Abdominal: Present soft, Present bowel sounds normal, Present tender (MILD SUPRAPUBIC TENDERNESS); Absent left CVA tenderness, Absent right CVA tenderness GENITOURINARY Genitourinary: Present exam deferred SKIN Skin: Present warm, Present dry MUSCULOSKELETAL Musculoskeletal: Present ROM normal NEUROLOGICAL Neurological: Present alert, Present oriented x 3, Present no gross motor or sensory deficits PSYCHOLOGICAL Psychological: Present mood/affect normal, Present judgement normal Results Laboratory Laboratory Laboratory Tests Test 02/22/20 00:55 Urine Color Marii (YELLOW) Urine Clarity Cloudy (CLEAR) Urine pH 5.5 (5 - 7) Urine Specific [place] 1.025 (1.010-1.025) Urine Protein Negative (NEGATIVE) Urine Glucose (UA) Negative (NEGATIVE) Urine Ketones Trace (NEGATIVE) Urine Blood Small (NEGATIVE) Urine Nitrite Positive (NEGATIVE) Urine Bilirubin Small (NEGATIVE) Urine Urobilinogen 2.0 mg/dL (0.2 - 1) Urine Leukocyte Esterase Trace (NEGATIVE) Urine RBC 11-20 /HPF (0-5) Urine WBC 11-20 /HPF (0-5) Urine Epithelial Cells Moderate /LPF (NONE) Urine Bacteria Moderate /HPF (NONE) Lab results reviewed: Yes Assessment & Plan Medical Decision Making MDM PT WITH SUPRA PUBIC PAIN AND DYSURIA FOR 1 WEEK UA ORDERED TO EVAL FOR UTI PT STILL HAS UTI BASED ON UA THAT IS NITRITE POSITIVE,RBC'S AND WBC'S ROCEPHIN 1 GRAM IM ORDERED PT DISCHARGED WITH OMNICEF 300 MG PO BID FOR 10 DAYS #20, PYRIDIUM 200 MG PO TID #9 Assessment & Plan Final Impression: (1) UTI (urinary tract infection) Last Vital Signs Date Time Temp Pulse Resp B/P (MAP) Pulse Ox O2 Delivery O2 Flow Rate FiO2 02/22/20 00:50 98.4 65 20 155/80 100 Room Air Home Meds Active Scripts Cephalexin Monohydrate (KEFLEX) 500 Mg Capsule, 500 MG PO QID, #20 TAB Prov:CLAUDETTE DALY MD 04/26/19 Oseltamivir Phosphate (TAMIFLU) 75 Mg Cap, 75 MG PO BID, #6 TAB Prov:CLAUDETTE DALY MD 04/26/19 Reported Medications Losartan/Hydrochlorothiazide (LOSARTAN-HCTZ 100-12.5 MG TAB) 1 Each Tablet 10/10/18 GUS GUEVARA MD Feb 22, 2020 01:05
[2020-02-22 02:41] LABS: CLARITY,URINE CLOUDY (CLEAR); COLOR,URINE AMBER (YELLOW)
[2020-02-22 02:42] LABS: BACTERIA,URINE MODERATE /HPF; BILIRUBIN,URINE SMALL (NEGATIVE); EPITHELIAL CELLS,URINE MODERATE /LPF; KETONES,URINE TRACE (NEGATIVE); LEUKOCYTE ESTERASE ,URINE TRACE (NEGATIVE); NITRITE,URINE POSITIVE (NEGATIVE); PROTEIN,URINE DIPSTICK NEGATIVE (NEGATIVE)
[2020-02-22] MEDS ORDERED: CEFTRIAXONE SOD 1 GM VIAL ONE (02:59)
[2020-02-22] MEDS ORDERED: LIDOCAINE HCL 1% LOCAL INJ 20 ML VIAL ONE (02:59)
[2020-02-22] MEDS ORDERED: CEFTRIAXONE SOD 1 GM VIAL IM ONE (03:00)
[2020-02-22] MEDS ORDERED: LIDOCAINE 1% 5ML-MPF INJ ONE (03:00)
[2020-02-22 03:33] VITALS: BP 113/72
== END 2020-02-22 03:40 | disposition home or self-care (01) ==
LOC: ER 00:56
DX: R10.30 Lower abdominal pain, unspecified (principal); N39.0 Urinary tract infection, site not specified; R30.0 Dysuria; R31.9 Hematuria, unspecified; R11.0 Nausea; I10 Essential (primary) hypertension; K21.9 Gastro-esophageal reflux disease without esophagitis
CPT/HCPCS: 81001; 99283; J0696; J2001

== ENCOUNTER → 2020-04-02 | Day surgery (SDC) | payer OTHER ==
[2020-03-08 14:37] LABS: ANION GAP 13.5 mmol/L (8-16); BLOOD UREA NITROGEN 12 mg/dL (7-26); BUN/CREATININE RATIO 15 (6-25); CALCIUM 8.9 mg/dL (8.4-10.2); CARBON DIOXIDE 27 mmol/L (22-29); CHLORIDE 99 mmol/L (98-107); CREATININE, SERUM 0.81 mg/dL (0.57-1.11); EST GLOMERULAR FILTRATION RATE > 60 ML/MIN (60-); GLUCOSE 92 mg/dL (74-118); POTASSIUM 3.5 mmol/L (3.5-5.1); SODIUM 136 mmol/L (136-145)
[~2020-04-02] MED LIST changes: +ALENDRONATE SOD70 MG PO; +CEFTRIAXONE SOD 1 GM/NS 50 ML 50 ML IV ONE; +DEXAMETHASONE SOD PHOS INJ 4 MG/ML VIAL ONE; +DICYCLOMINE HCL10 MG PO; +EPHEDRINE SULFATE INJ 50 MG/ML VIAL ONE; +IOPAMIDOL 300MG/ML 50ML INFUS..BTL IV ONE; +LIDOCAINE HCL 2% LOCAL INJ 5 ML SDV VIAL INJ ONE; +OMEPRAZOLE40 MG PO; +ONDANSETRON HCL INJ 2MG/ML 2ML 2 MG/ML VIAL ONE; +PROPOFOL IV EMULSION 10 MG/ML 20 ML VIAL ONE; +SEVOFLURANE INHAL SOLN 250 ML PEN BTL ONE
[2020-04-02 11:50] VITALS: BP 130/68
--- NOTE | 2020-04-02 13:30 | Operative Report ---
DATE OF PROCEDURE: 04/02/2020 SURGEON: Chip Powell MD PREOPERATIVE DIAGNOSES: 1. Multiple chronic urinary tract infections. 2. Clinical signs and symptoms of interstitial cystitis without hematuria. POSTOPERATIVE DIAGNOSES: 1. Multiple chronic urinary tract infections. 2. Clinical signs and symptoms of interstitial cystitis without hematuria. PROCEDURES: 1. Cystourethroscopy with hydrodistention (entirely separate procedure for clinical signs and symptoms of interstitial cystitis). 2. Cystourethroscopy with left ureteral catheterization and left retrograde pyelogram (separate procedure for multiple chronic urinary tract infections). 3. Cystourethroscopy with right ureteral catheterization and right retrograde pyelogram (separate procedure for multiple chronic urinary tract infections). 4. Supervision of fluoroscopy. 5. Interpretation of retrograde pyelography. ANESTHESIA: General. ESTIMATED BLOOD LOSS: Minimal. COMPLICATIONS: None. INDICATIONS FOR PROCEDURE: Ms. Paige is a 59-year-old female with a history of recurrent urinary tract infections and clinical symptoms of interstitial cystitis. She and I had a long discussion about alternatives, risks, and benefits of doing nothing, cystoscopy, IVP, retrograde pyelogram, renal ultrasound, hydrodistention. She voiced understanding of the options, alternatives, the risks, and benefits and elected to proceed. PROCEDURE IN DETAIL: After informed consent was obtained, the patient was taken to the operative suite, placed supine on the operating table, underwent general anesthesia by Anesthesia Service, was placed in dorsal lithotomy position and sterilely prepped and draped in standard fashion for cystoscopy. Grade 2 to 3 cystoceles were noted. There was positive vaginal atrophy. A 21-Arabic cystoscope was inserted per urethra. Normal urethra was noted. Panendoscopy of the bladder revealed no tumors, no stones. 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 Hydrodistention was performed with a capacity of 800 mL. No glomerulations. No Hunner's ulcers. Bilateral retrograde pyelogram was performed, which were normal. The bladder was drained. The patient was awakened from anesthesia and transported to the recovery room in excellent condition. Supervision of fluoroscopy and interpretation of retrograde pyelography: I was present for the entire procedure and supervised fluoroscopy. There was no radiologist present at that time. Bilateral retrograde pyelogram was performed revealing multiple air bubble filling defect, which cleared under fluoroscopy. IMPRESSION: Normal bilateral retrograde pyelogram. MD QIAN Recio/MADELINE /[id number]
== END | disposition home or self-care (01) ==
LOC: OR 08:01
PROVIDERS: ATTEND Urology
DX: N30.80 Other cystitis without hematuria (principal); N81.10 Cystocele, unspecified; N95.2 Postmenopausal atrophic vaginitis; M19.90 Unspecified osteoarthritis, unspecified site; I10 Essential (primary) hypertension; E78.5 Hyperlipidemia, unspecified; K44.9 Diaphragmatic hernia without obstruction or gangrene; K57.90 Diverticulosis of intestine, part unspecified, without perforation or abscess without bleeding; Z88.6 Allergy status to analgesic agent; Z91.041 Radiographic dye allergy status
CPT/HCPCS: 36415; 52005; 74420; 80048; 93005; C1758; J0696; J1100; J2001; J2405; J2704; Q9967; U0002 ×2

== ENCOUNTER 2020-04-05 13:32 | Emergency (ER) | payer OTHER ==
[~2020-04-05] VITALS: Ht 157.5 cm; Wt 82.1 kg
[~2020-04-05 13:32] MED LIST changes: -CEFTRIAXONE SOD 1 GM/NS 50 ML 50 ML IV ONE; -DEXAMETHASONE SOD PHOS INJ 4 MG/ML VIAL ONE; -EPHEDRINE SULFATE INJ 50 MG/ML VIAL ONE; -IOPAMIDOL 300MG/ML 50ML INFUS..BTL IV ONE; -LIDOCAINE HCL 2% LOCAL INJ 5 ML SDV VIAL INJ ONE; -ONDANSETRON HCL INJ 2MG/ML 2ML 2 MG/ML VIAL ONE; -PROPOFOL IV EMULSION 10 MG/ML 20 ML VIAL ONE; -SEVOFLURANE INHAL SOLN 250 ML PEN BTL ONE
--- OUTSIDE RECORDS SUMMARY | 2020-04-05 14:19 | XMS REPORT | Clinical Summary ---
Author Author [facility] Organization [facility] Address Unknown Phone Unavailable Care Team Providers Care Corrugator Helper Name Role Phone Haywood--Hermann Lincoln PCP Allergies [...] lateral meniscus tear of left knee, initial enc ounter 12/25/2017 Social History Date Tobacco Use Types [...] Not on file Results Not on fileafter 04/05/2019 Insurance Payer Benefit Subscriber ID Type Phone Address Plan / Group [employer] Nicci barajas (Home) [place] [address] Advance Directives For more information, please contact: [facility] [address] [place] [address] Date Inactivated Comments Code Status Date Activated 12/25/2017 4:48 PM Full Code 12/25/2017 7:27 AM This code status was determined by: Patient
--- OUTSIDE RECORDS SUMMARY | 2020-04-05 14:20 | XMS REPORT | Continuity of Care Document ---
Author Author [facility] t Organization [facility] Address [address] [place] [address] Phone Unavailable Care Team Providers Care Director Payer Name Role Phone MD Ernie العراقي MD PCP JOAQUIN RECINOS Attphys Unavailable SWEET, A LAIRD Attphys Unavailable MICHAEL LYNN Attphys Unavailable ISSA, S AMBICA Attphys Unavailable REGIS REN Attphys Unavailable العراقي, Ernie KIERSTEN Attphys Unavailable Payers Payer Name Policy Type Policy Number Effective Date Expiration Date [employer] [id number] 2019 00:00:00 [facility] Problems Condition Name Condition Details Condition Category Status Onset Date Resolution Date Last Treatment Date Treating Clinician Comments Source Primary osteoarthritis of left knee Primary osteoarthritis of le ft knee Disease Active 2017-12-25 00:00:00 [facility] Acute lateral meniscus tear of left knee, initial enco unter Acute lateral meniscus tear of left knee, initial encounter Disease Active 2017-12-25 00:00:00 [facility] Influenza due to influenza virus, type A, human Influenza A Problem Active [facility] Pneumonia Pneumonia Problem Active [facility] Pharyngitis due to Streptococcus species Strep pharyngitis Problem Activ e [facility] Urinary tract infection Problem Active [facility] Allergies, Adverse Reactions, Alerts Allergy Name Allergy Type Status Severity Reaction(s) Onset Date Inacti ve Date Treating Clinician Comments Source iodine DA Active 2020-03-19 00:00:00 [facility] morphine DA Active SV 2020-03-19 00:00:00 [facility] morphine DA Active U 2020-03-10 00:00:00 [facility] morphine DA Active U 2020-02-26 00:00:00 [facility] Morphine Allergy to substance Active 2019-04-25 00:00:00 [facility] No Known Allergies DA Active U 2018-10-29 00:00:00 [facility] gabapentin DA Active [place] 2018-10-09 00:00:00 [facility] meclizine DA Active [place] 2018-10-09 00:00:00 [facility] meclizine DA Active 2014-05-30 00:00:00 [facility] gabapentin DA Active [place] 2014-05-26 00:00:00 [facility] Social History Social Habit Start Date Stop Date Quantity Comments Source Sex Assigned At [facility] Smoking Status Start Date Stop Date Source Never smoker [facility] Medications Ordered Medication Name Filled Medication Name Start Date Stop Da te Current Medication? Ordering Clinician Indication Dosage Frequency Signature (SIG) Comments Components Source Cephalexin Monohydrate (Keflex) 500 Mg CAPSULE Cephale lillian Monohydrate (Keflex) 500 Mg CAPSULE 2019-04-26 11:37:00 Yes 500 Four Time s Daily [facility] Oseltamivir Phosphate (Tamiflu) 75 Mg CAP Oseltamivir Phosphate (Tamiflu) 75 Mg CAP 2019-04-26 11:36:00 Yes 75 Twice A Day [facility] Nitrofurantoin Monohyd/M-Cryst (Macrobid 100 Mg Capsul e) 100 Mg CAPSULE Nitrofurantoin Monohyd/M-Cryst (Macrobid 100 Mg Capsule) 100 Mg CAPSULE 2018-10-10 06:02:00 2019-04-25 00:00:00 No 100 Twice A Day [facility] losartan (COZAAR) 50 MG tablet 2017-12-19 11:52:55 Yes 50mg QD Take 50 mg by mouth daily. [facility] omeprazole (PRILOSEC) 20 MG capsule 2017-12-19 11:52:55 Yes 20mg Take 20 mg by mouth as needed. [facility] acetaminophen (TYLENOL) 325 MG tablet 2017-12-19 11:52:55 Y es 325mg Take 325 mg by mouth as needed for Pain. [facility] Losartan/Hydrochlorothiazide (Losartan-Hctz 100-12.5 M g Tab) 1 Each TABLET Losartan/Hydrochlorothiazide (Losartan-Hctz 100-12.5 Mg Tab) 1 Each TABLET Yes [facility] Ergocalciferol (Vitamin D2) (Vitamin D2) 50,000 Unit C APSULE Ergocalciferol (Vitamin D2) (Vitamin D2) 50,000 Unit CAPSULE 2019-04-25 00:00:00 No [facility] Omeprazole Omeprazole 2019-04-25 00:00:00 No [facility] Cefdinir Cefdinir 2018-10-10 00:00:00 No 5 Every 1 2 Hours [facility] Lisinopril (Prinavil / Zestril) 20 Mg TABLET Lisinopri l (Prinavil / Zestril) 20 Mg TABLET 2018-10-10 00:00:00 No [facility] Pantoprazole Sodium (Protonix) 40 Mg TABLET. Pantopr azole Sodium (Protonix) 40 Mg TABLET. 2018-10-10 00:00:00 No 40 Daily [facility] Vital Signs Vital Name Observation Time Observation Value Comments Source Weight 2020-02-22 00:50:00 181 [lb_av] [facility] BMI (Body Mass Index) 2020-02-22 00:50:00 33.1 kg/m2 [facility] Procedures Procedure Date / Time Performed Performing Clinician [facility]ound, renal 2019-07-28 00:00:00 [facility] Plan of Care Planned Activity Planned Date Details Comments Source Instructions Urinary Tract Infection - Women [facility] Encounters Start Date/Time End Date/Time Encounter Type Admission Type [facility] Care Department Encounter ID Source 2020-02-22 00:56:00 2020-02-22 03:40:00 Departed Emergency Room [facility] [id number] [facility] 2019-07-28 08:43:00 2019-07-28 08:43:00 Registered Clinic 3 JOAQUIN RECINOS [facility] [id number] [facility] 2019-04-25 17:08:00 2019-04-27 16:55:00 Discharged Inpatient 1 NATHANAEL SANCHEZ [facility] [id number] [facility] 2018-10-17 09:43:00 2018-10-17 09:43:00 Registered Clinic 3 LIAM LYNN [facility] [id number] [facility] 2018-10-10 03:56:00 2018-10-10 07:37:00 Departed Emergency Room 1 CORBIN PARSONS [facility] [id number] [facility] Results Test Description Test Time Test Comments Results Result Comments Source - XR CHEST 2 V 2020-03-19 23:43:00 FAX: Kennedy Cruz NP [phone] [place]: St: REG FAX: Kiersten You [phone] Name: JOHN PULIDO [place] : 1960 Age/S: 59/F [address] [place] [address] Blvd Unit #: [id number] Loc: [place] [address] Phys: Kennedy Cruz NP Acct: [id number] Dis Date: Status: REG ER PHONE #: [phone] Exam Date: 03/19/20202254 FAX #: [phone] Reason: R sided chest pain EXAMS: CPT CODE: [id number] XR CHEST 2 V [id number] Chest, 2 views dated 03/19/2020. HISTORY: Right-sided chest pain. Abdominal pain. Nausea. Comparison is made to a prior study dated 03/12/2020. The heart is normal in size. The cardiomediastinal shadow is stable. The lungs appear clear. The pulmonary vasculature is normal in caliber. No acute pleural space abnormalities are detected. IMPRESSION: 1. No radiographic evidence of acute cardiopulmonary disease. SL: 131 at 8724 Reported and signed by: Kenny Gordon M.D. CC: Kennedy Cruz NP; Kiersten Lincoln M.D. Technologist: RT Rad(Savage) Trnscrd Date/Time/By: 03/19/2020 (4190) : By: Joey Orig Print D/T: S: 03/19/2020 (5176) PAGE 1 Signed Report BASIC METABOLIC PANEL 2020-03-19 23:21:00 Test Item SODIUM (test code = NA) 139 mEq/L 134-147 N POTASSIUM (test code = K) 3.8 mEq/L 3.4-5.0 N CHLORIDE (test code = CL) 101 mEq/L 100-108 N CARBON DIOXIDE (test code = CO2) 29 mEq/L 21-33 N ANION GAP (test code = GAP) 13 0-20 N GLUCOSE (test code = GLU) 100 mg/dL 70-110 N BLOOD UREA NITROGEN (test code = BUN) 13 mg/dL 7-18 N GLOMERULAR FILTRATION RATE (test code = GFR) 72.9 80-90 L Units of measure = ml/min/1.73 m2 CREATININE (test code = CREAT) 0.8 mg/dL 0.6-1.3 N CALCIUM (test code = CA) 9.9 mg/dL 8.0-10.5 N HEPATIC FUNCTION [id number] 23:21:00* Test Item Value Reference Range Interpretation Comments TOTAL PROTEIN (test code = PROT) 7.2 g/dL 6.4-8.2 N ALBUMIN (test code = ALB) 4.00 g/dL 3.4-5.0 N BILIRUBIN TOTAL (test code = BILT) 0.50 mg/dL 0.0-1.0 N BILIRUBIN DIRECT (test code = BILD) 0.10 MG/DL 0.0-0.30 N BILIRUBIN INDIRECT (test code = BILIND) 0.40 MG/DL SGOT/AST (test code = AST) 16 IUnit/L 15-37 N SGPT/ALT (test code = ALT) 23 IUnit/L 30-65 L ALKALINE PHOSPHATASE TOTAL (test code = ALKP) 86 IUnit/L 20-125 N [id number] 23:21:00* Test Item Value Reference Range Interpretation Comments LIPASE (test code = LIP) 44 U/L 13-57 N CBC W/AUTO [id number] 23:06:00* Test Item Value Reference Range Interpretation Comments WHITE BLOOD CELL (test code = WBC) 7.47 x10 3/uL 4.5-11.0 N RED BLOOD CELL (test code = RBC) 4.17 x10 6/uL 3.54-5.02 N HEMOGLOBIN (test code = HGB) 12.8 g/dL 11.0-15.0 N HEMATOCRIT (test code = HCT) 39.3 % 33.0-45.0 N MEAN CELL VOLUME (test code = MCV) 94.2 fL 81.0-99.0 N MEAN CELL HGB (test code = MCH) 30.7 pg 27.0-33.0 N MEAN CELL HGB CONCETRATION (test code = MCHC) 32.6 g/dL 33.0-37. 0 L RED CELL DISTRIBUTION WIDTH CV (test code = RDW) 13.4 % 11.5- 14.5 N RED CELL DISTRIBUTION WIDTH SD (test code = RDW-SD) 45.7 fL 37 .0-54.0 N PLATELET COUNT (test code = PLT) 243 x10 3/uL 150-400 N MEAN PLATELET VOLUME (test code = MPV) 10.5 fL 7.0-9.0 H NEUTROPHIL % (test code = NT%) 58.8 % 56.0-77.0 N IMMATURE GRANULOCYTE % (test code = IG%) 0.1 % 0.0-2.0 N LYMPHOCYTE % (test code = LY%) 33.6 % 14.0-32.0 H MONOCYTE % (test code = MO%) 5.9 % 4.8-9.0 N EOSINOPHIL % (test code = EO%) 1.2 % 0.3-3.7 N BASOPHIL % (test code = BA%) 0.4 % 0.0-2.0 N NUCLEATED RBC % (test code = NRBC%) 0.0 % 0-0 N NEUTROPHIL # (test code = NT#) 4.39 x10 3/uL 2.0-7.6 N IMMATURE GRANULOCYTE # (test code = IG#) 0.01 x10 3/uL 0.00-0.03 N LYMPHOCYTE # (test code = LY#) 2.51 x10 3/uL 1.0-3.8 N MONOCYTE # (test code = MO#) 0.44 x10 3/uL 0.1-0.8 N EOSINOPHIL # (test code = EO#) 0.09 x10 3/uL 0.0-0.2 N BASOPHIL # (test code = BA#) 0.03 x10 3/uL 0.0-0.2 N NUCLEATED RBC # (test code = NRBC#) 0.00 x10 3/uL 0.0-0.1 N MANUAL DIFF REQUIRED (test code = MDIFF) NO UA RFLX MICR CULT IF [id number] 22:50:00* Test Item Value Reference Range Interpretation Comments UA COLOR (test code = COLU) COLORLESS YEL/STRAW UA APPEARANCE (test code = APPU) CLEAR CLEAR UA GLUCOSE DIPSTICK (test code = DGLUU) NEGATIVE NEGATIVE UA BILIRUBIN DIPSTICK (test code = BILU) NEGATIVE NEGATIVE UA KETONE DIPSTICK (test code = KETU) NEGATIVE NEGATIVE UA SPECIFIC GRAVITY (test code = SGU) 1.002 1.005-1.030 L UA BLOOD DIPSTICK (test code = FLOYD) 2+ NEGATIVE A UA PH DIPSTICK (test code = ERIC) 7.0 5.0-7.0 N UA PROTEIN DIPSTICK (test code = PROU) NEGATIVE NEGATIVE UA UROBILINIOGEN DIPSTICK (test code = URO) 0.2 mg/dL 0.2-1.0 UA NITRITE DIPSTICK (test code = ELODIA) NEGATIVE NEGATIVE UA LEUKOCYTE ESTERASE DIPSTICK (test code = LEUU) TRACE NEGA TIVE A UA WBC (test code = WBCU) 0-3 WBC/HPF 0-3 UA RBC (test code = RBCU) 0-3 RBC/HPF 0-3 UA WBC NO REFLEX (test code = WBCUCL) 0-3 WBC/HPF 0-3 UA BACTERIA (test code = BACU) NONE SEEN /HPF NONE SEEN UA SQUAMOUS CELLS (test code = SQU) 0-5 /HPF NONE SEEN Indication for culture: Suprapubic Pain Flank PainSpecimen Description: CLEAN CATCH- CTA [id number] 15:36:00 [facility] 1960 Age[facility]S: 59 / F [address] [facility] Unit #: [id number] Loc: [place] [address] Phys: January Stanton NP Acct: [id number] Dis Date: Status: ADM IN PHONE #: [phone] Exam Date: 03/12/2020920 FAX #: [phone] Reason: chest pain EXAMS: CPT CODE: [id number] CTA CHEST 73891 REASON FOR EXAM: chest pain EXAM ORDER DATE: 03/12/2020 1:19 PM Ordering: January Stanton NP Attending:Sheng Tejeda MD Location:[facility] PROCEDURE: - CTA CHEST FINDINGS: CT images of the chest were obtained with IV contrast using PE protocol. Reconstructed sagittal and coronal images including 3D reconstructions of the chest were provided for interpretation. Dose reduction techniques were applied. Intravenous contrast: 100cc of Omnipaque 370. The heart size is minimally enlarged. No evidence of pericardial effusion The tho racic aorta is unremarkable. No evidence of dissection or aneurysmal dila tation. No filling defect seen within the main or lobar pulmonary arteries to suggest pulmonary embolus No evidence of mediastinal or hilar ad enopathy Dependent atelectasis at the bases. No evidence of pleural effus ion IMPRESSION: No acute findings in the chest. Elec tronically Signed by Peter Branham on 03/12/2020 at 1536 Reported and signed by: Paddy Branham M.D. CC: January Stanton NP; Sheng Johnson MD; Kiersten Rodriguez MD Technologist:Malena Martin,RT(R),CT CTDI: DLP: Trnscb Date/Time: 03/12/2020 (1536) t.SDR.VTL Orig Print D/T: S: 03/12/2020 (1539) PAGE 1 S igned Report - CT HEART W CN [id number] 15:26:00 Name: JOHN PULIDO [facility] : 1960 Age/S: 59 / F [address] [facility] Unit #: [id number] Loc: [place] [address] Phys: January Stanton NP Acct: [id number] Dis Date: Status: ADM IN PHONE #: [phone] Exam Date: 03/12/2020919 FAX #: [phone] Reason: chest pain/back pain/shortness of breath EXAMS: CPT CODE: [id number] CT HEART W CN ART/GRAFTS 65632 REASON FOR EXAM: chest pain/back pain/shortness of breath EXAM ORDER DATE: 03/12/2020 3:07 PM Ordering: January Stanton NP Attending:Sheng Tejeda MD Location:[facility] PROCEDURE: - CT HEART W CN ART/GRAFTS COMPARISON: FINDINGS: Cardiac gated axial images of the heart were obtained with IV contrast. Dose reduction techniques were applied. Reconstructed 3-D angiogram of the coronary vessels as well as intraluminal vessel analysis were also provided for interpretation Right coronary artery: Unremarkable Left main artery: Unremarkable Left anterior descending artery: Minimal calcification of the proximal segment of the LAD without focal stenosis Left circumflex: Unremarkable Obtuse marginal artery: Unremarkable IMPRESSION: Unremarkable coronary arteries. Minimal nonspecific calcification of the proximal LAD. at 1526 Reported and signed by: Paddy Branham M.D. CC: January Stanton NP; Sheng Lowry MD; Kiersten Rodriguez MD Technologist:Malena Martin,RT(R),CT CTDI: DLP: Trnscb Date/Time: 03/12/2020 (1525) t.TRUPTIL Orig Print D/T: S: 03/12/2020 (7844) PAGE 1 Signed Report - XR CHEST 2 [id number] 08:03:00 FAX: Sheng Chinchilla I [phone] [place]: St: ADM FAX: Roderick Adan MD [phone] FAX: Kiersten You [phone] Name: JOHN PULIDO [facility] : 1960 Age/S: 59/F [address] [facility] Unit #: [id number] Loc: [address] [place] [address] Phys: Roderick Siegel MD Acct: [id number] Dis Date: Status: ADM [facility] #: [phone] Exam Date: 03/12/2020 0736 FAX #: [phone] Reason: atelecctasis vs pneumonia EXAMS: CPT CODE: [id number] XR CHEST 2 V 42848 REASON FOR EXAM: atelecctasis vs pneumonia Exam Order Date: 03/12/2020 12: 00 AM Ordering M.D.: Roderick Siegel MD PROCEDURE: - XR CHEST 2 V COMPARISON: Chest x-ray March 10, 2020 FINDINGS: The lungs are clear other than mild subsegmental atelectasi s in the left lung base. There is no pleural effusion or pneumothorax. Pulmonary vascularity is within normal limits. Cardiomediastin al silhouette is normal in size for technique. The mediastinal contours ar e within normal limits. Musculoskeletal structures are within norm al limits. The visualized upper abdomen is within normal limits. IMPRESSION: No acute cardiopulmonary process. Location: [facility] at 0803 Reported and signed by: Meng rothman MD CC: Sheng Lowry MD; Roderick Siegel MD; Kiersten Rodriguez MD Techn ologist: KENNEDY LI JR RT(R) Trnscrd Date/Horace e/By: 03/12/2020 (802) : By: [email or web address] Orig Print D/T: S: 03/12/2020 (805) PAGE 1 Signed Report [id number] 07:45:00* Test Item Value Reference Range Interpretation Comments TROPONIN-I (test code = TROPI) <0.015 ng/mL 0-0.045 N COMMENTS TO BODY LINER: COLLECT 3 HOURS AFTER PREVIOUS SAMPLELIPID PROFILE (CORONARY RISK)2020-03-11 07:22:00* Test Item Value Reference Range Interpretation Comments TRIGLYCERIDES (test code = TRIG) 121 mg/dL 20-150 N CHOLESTEROL (test code = CHOL) 214 mg/dL 0-200 H CHOLESTEROL/HDL RATIO (test code = CHOLHDL) 3.0 RATIO 0-4.9 N RISK ASSOCIATED WITH CHOL/HDL RATIOS: Risk Male Female1/2 AVERAGE 3.43 3.27AVERAGE 4.97 4.442X AVERAGE 9.55 7.053X AVERAGE 23.39 11.04 REFERENCE VALUE IS RELATED TO RISK LEVELS ASRECOMMENDED BY THE [place]. HEART, LUNG, AND BLOOD INST. HDL CHOLESTEROL (test code = HDL) 66 mg/dL 40-60 H LIPOPROTEIN LDL (test code = LDL) 133 mg/dL 100-129 H RN PERSONNEL, CONTACT PHYSICIAN IMMEDIATELY IF THIS IS A STROKE, AMI OR CAROTID STENOSIS PATIENT WHEN THE LDL >100 (1ST OCCURENCE, THIS ADMISSION) Reference Interval: mg/dL mmol/L Optimal <100 <2.6Near/above optimal 100-129 2.6- 3.3Borderline High 130-159 3.4-4.1High 160-189 4.1-4.9Very High >=190 >=4.9========= This LDL result is a direct measurement.========= [id number] 10:02:00* Test Item Value Reference Range Interpretation Comments TROPONIN-I (test code = TROPI) <0.015 ng/mL 0-0.045 N COMMENTS TO BODY LINER: COLLECT 3 HOURS AFTER PREVIOUS SAMPLEURINALYSIS [id number] 06:03:00* Test Item Value Reference Range Interpretation Comments UA COLOR (test code = COLU) YELLOW YELLOW UA APPEARANCE (test code = APPU) CLEAR CLEAR UA GLUCOSE DIPSTICK (test code = DGLUU) NEGATIVE mg/dL NEGATIVE UA BILIRUBIN DIPSTICK (test code = BILU) NEGATIVE mg/dL NEGATIVE UA KETONE DIPSTICK (test code = KETU) NEGATIVE mg/dL NEGATIVE UA SPECIFIC GRAVITY (test code = SGU) 1.007 1.001-1.035 UA BLOOD DIPSTICK (test code = FLOYD) 0.1 mg/dL (1+) mg/dL NEGATIVE A UA PH DIPSTICK (test code = ERIC) 5.5 5.0-8.0 UA PROTEIN DIPSTICK (test code = PROU) NEGATIVE mg/dL NEGATIVE UA UROBILINIOGEN DIPSTICK (test code = URO) Normal mg/dL NEGATIVE UA NITRITE DIPSTICK (test code = ELODIA) NEGATIVE NEGATIVE UA LEUKOCYTE ESTERASE W REFLEX (test code = LEUUR) 250 Kalin/u L (2+) Kalin/uL NEGATIVE A UA WBC (test code = WBCU) per HPF 0-5 UA RBC (test code = RBCU) per HPF 0-5 UA EPITHELIAL CELLS (test code = EPIU) per HPF Few UA BACTERIA (test code = BACU) per HPF NONE Urine Source? Clean CatchURINALYSIS [id number] 06:03:00* Test Item Value Reference Range Interpretation Comments UA COLOR (test code = COLU) YELLOW YELLOW UA APPEARANCE (test code = APPU) CLEAR CLEAR UA GLUCOSE DIPSTICK (test code = DGLUU) NEGATIVE mg/dL NEGATIVE UA BILIRUBIN DIPSTICK (test code = BILU) NEGATIVE mg/dL NEGATIVE UA KETONE DIPSTICK (test code = KETU) NEGATIVE mg/dL NEGATIVE UA SPECIFIC GRAVITY (test code = SGU) 1.007 1.001-1.035 UA BLOOD DIPSTICK (test code = FLOYD) 0.1 mg/dL (1+) mg/dL NEGATIVE A UA PH DIPSTICK (test code = ERIC) 5.5 5.0-8.0 UA PROTEIN DIPSTICK (test code = PROU) NEGATIVE mg/dL NEGATIVE UA UROBILINIOGEN DIPSTICK (test code = URO) Normal mg/dL NEGATIVE UA NITRITE DIPSTICK (test code = ELODIA) NEGATIVE NEGATIVE UA LEUKOCYTE ESTERASE W REFLEX (test code = LEUUR) 250 Kalin/u L (2+) Kalin/uL NEGATIVE A UA WBC (test code = WBCU) 6-10 per HPF 0-5 A UA RBC (test code = RBCU) 0-2 #/HPF 0-5 UA EPITHELIAL CELLS (test code = EPIU) FEW per HPF FEW UA BACTERIA (test code = BACU) FEW #/HPF NONE A UA MUCUS (test code = MUCU) FEW #/LPF FEW Urine Source? Clean CatchB-TYPE NATRIURETIC [id number] 04:52:00* Test Item Value Reference Range Interpretation Comments B-TYPE NATRIURETIC PEPTIDE (test code = BNP) 16.82 pgram/mL 0-100 N BASIC METABOLIC [id number] 04:13:00* Test Item Value Reference Range Interpretation Comments SODIUM (test code = NA) 136 mmol/L 136-145 N POTASSIUM (test code = K) 3.5 mmol/L 3.5-5.1 N CHLORIDE (test code = CL) 103.0 mmol/L 98-107 N CARBON DIOXIDE (test code = CO2) 25.0 mmol/L 21-32 N ANION GAP (test code = GAP) 11.5 10-20 N GLUCOSE (test code = GLU) 96 mg/dL 74-106 N BLOOD UREA NITROGEN (test code = BUN) 13 mg/dL 7-18 N GLOMERULAR FILTRATION RATE (test code = GFR) > 60 mL/min >=60 Estimated GFR by using Modified MDRD formula.Chronic kidney disease is defined as either kidney damageor GFR <60 mL/min/1.73 m2 for >3 months. CREATININE (test code = CREAT) 0.80 mg/dL 0.55-1.02 N Note change in reference range due to change in reagent. BUN/CREATININE RATIO (test code = BUN/CREA) 16.3 10-20 N CALCIUM (test code = CA) 9.5 mg/dL 8.5-10.1 N HEPATIC FUNCTION [id number] 04:13:00* Test Item Value Reference Range Interpretation Comments TOTAL PROTEIN (test code = PROT) 8.4 gram/dL 6.4-8.2 H ALBUMIN (test code = ALB) 3.7 g/dL 3.4-5.0 N GLOBULIN (test code = GLOB) 4.7 gram/dL 2.7-4.2 H ALBUMIN/GLOBULIN RATIO (test code = A/G) 0.8 0.75-1.50 N BILIRUBIN TOTAL (test code = BILT) 0.50 mg/dL 0.0-1.0 N BILIRUBIN DIRECT (test code = BILD) 0.11 mg/dL 0.0-0.20 N SGOT/AST (test code = AST) 20 IUnit/L 15-37 N SGPT/ALT (test code = ALT) 24 IUnit/L 12-78 N ALKALINE PHOSPHATASE TOTAL (test code = ALKP) 102 IUnit/L 45-117 N Note change in reference range due to change in reagent. LACTIC DEHYDROGENASE(LDH)2020-03-10 04:13:00* Test Item Value Reference Range Interpretation Comments LACTIC DEHYDROGENASE(LDH) (test code = LDH) 207 IUnit/L 84-246 N [id number] 04:13:00* Test Item Value Reference Range Interpretation Comments LIPASE (test code = LIP) 140 U/L 73.0-393.0 N [id number] 04:13:00* Test Item Value Reference Range Interpretation Comments TROPONIN-I (test code = TROPI) <0.015 ng/mL 0-0.045 N [id number] 04:13:00* Test Item Value Reference Range Interpretation Comments FERRITIN (test code = SINDHU) 78 ng/mL 8-388 N C REACTIVE [id number] 04:07:00* Test Item Value Reference Range Interpretation Comments C REACTIVE PROTEIN (test code = CRP) 0.40 mg/dL 0-0.3 H COVID 19 INHOUSE [id number] 04:02:00* Test Item Value Reference Range Interpretation Comments COVID 19 INHOUSE AG (test code = [id number]) NEGATIVE LACTIC [id number] 04:00:00* Test Item Value Reference Range Interpretation Comments LACTIC ACID (test code = LACT) 1.4 mmol/L 0.4-1.9 N BASIC METABOLIC [id number] 03:58:00* Test Item Value Reference Range Interpretation Comments SODIUM (test code = NA) 136 mmol/L 136-145 N POTASSIUM (test code = K) 3.5 mmol/L 3.5-5.1 N CHLORIDE (test code = CL) 103.0 mmol/L 98-107 N CARBON DIOXIDE (test code = CO2) mmol/L 21-32 ANION GAP (test code = GAP) 10-20 GLUCOSE (test code = GLU) mg/dL 74-106 BLOOD UREA NITROGEN (test code = BUN) mg/dL 7-18 GLOMERULAR FILTRATION RATE (test code = GFR) mL/min >=60 CREATININE (test code = CREAT) mg/dL 0.55-1.02 BUN/CREATININE RATIO (test code = BUN/CREA) 10-20 CALCIUM (test code = CA) mg/dL 8.5-10.1 HEPATIC FUNCTION [id number] 03:58:00* Test Item Value Reference Range Interpretation Comments TOTAL PROTEIN (test code = PROT) gram/dL 6.4-8.2 ALBUMIN (test code = ALB) g/dL 3.4-5.0 GLOBULIN (test code = GLOB) gram/dL 2.7-4.2 ALBUMIN/GLOBULIN RATIO (test code = A/G) 0.75-1.50 BILIRUBIN TOTAL (test code = BILT) mg/dL 0.0-1.0 BILIRUBIN DIRECT (test code = BILD) mg/dL 0.0-0.20 SGOT/AST (test code = AST) IUnit/L 15-37 SGPT/ALT (test code = ALT) IUnit/L 12-78 ALKALINE PHOSPHATASE TOTAL (test code = ALKP) IUnit/L 45-117 LACTIC DEHYDROGENASE(LDH)2020-03-10 03:58:00* Test Item Value Reference Range Interpretation Comments LACTIC DEHYDROGENASE(LDH) (test code = LDH) IUnit/L 84-246 [id number] 03:58:00* Test Item Value Reference Range Interpretation Comments LIPASE (test code = LIP) U/L 73.0-393.0 [id number] 03:58:00* Test Item Value Reference Range Interpretation Comments TROPONIN-I (test code = TROPI) ng/mL 0-0.045 [id number] 03:58:00* Test Item Value Reference Range Interpretation Comments FERRITIN (test code = SINDHU) ng/mL 8-388 CBC W/AUTO [id number] 03:45:00* Test Item Value Reference Range Interpretation Comments WHITE BLOOD CELL (test code = WBC) 8.7 K/mm3 4.5-12.5 N RED BLOOD CELL (test code = RBC) 4.49 mill/mm3 3.7-5.2 N HEMOGLOBIN (test code = HGB) 13.6 gram/dL 11.5-15.5 N HEMATOCRIT (test code = HCT) 41.7 % 36.0-46.0 N MEAN CELL VOLUME (test code = MCV) 92.9 fL 80-98 N MEAN CELL HGB (test code = MCH) 30.3 picogram 27.0-33.0 N MEAN CELL HGB CONCETRATION (test code = MCHC) 32.6 gram/dL 33.0-36. 0 L RED CELL DISTRIBUTION WIDTH (test code = RDW) 13.5 % 11.6-16. 2 N RED CELL DISTRIBUTION WIDTH SD (test code = RDW-SD) 46.0 fL 37 .0-51.0 N PLATELET COUNT (test code = PLT) 234 K/mm3 150-450 N MEAN PLATELET VOLUME (test code = MPV) 10.8 fL 6.7-11.0 N NEUTROPHIL % (test code = NT%) 61.7 % 39.0-69.0 N IMMATURE GRANULOCYTE % (test code = IG%) 0.3 % 0.0-5.0 N LYMPHOCYTE % (test code = LY%) 30.6 % 25.0-55.0 N MONOCYTE % (test code = MO%) 6.0 % 0.0-10.0 N EOSINOPHIL % (test code = EO%) 0.9 % 0.0-5.0 N BASOPHIL % (test code = BA%) 0.5 % 0.0-1.0 N NUCLEATED RBC % (test code = NRBC%) 0.0 % 0-0 N NEUTROPHIL # (test code = NT#) 5.34 K/mm3 1.8-7.7 N IMMATURE GRANULOCYTE # (test code = IG#) 0.03 x10 3/uL 0-0.03 N LYMPHOCYTE # (test code = LY#) 2.65 K/mm3 1.0-5.0 N MONOCYTE # (test code = MO#) 0.52 K/mm3 0-0.8 N EOSINOPHIL # (test code = EO#) 0.08 K/mm3 0.0-0.5 N BASOPHIL # (test code = BA#) 0.04 K/mm3 0.0-0.2 N NUCLEATED RBC # (test code = NRBC#) 0.00 K/mm3 0.0-0.1 N MANUAL DIFF REQUIRED (test code = MDIFF) NO - XR CHEST 1 [id number] 02:29:00 FAX: Kiersten You [phone] [place]: St: [facility] FAX: Aleks Bran DO Name: JOHN PULIDO [facility] : 1960 Age/S: 59/F [address] Unit #: [id number] Loc: [place] [address] Phys: Aleks Bran DO Acct: [id number] Dis Date: Status: REG ER PHONE #: [phone] Exam Date: 03/10/2020 0203 FAX #: [phone] Reason: SHORTNESS OF BREATH EXAMS: CPT CODE: [id number] XR CHEST 1 V 45677 HISTORY: Shortness of breath Location: C3 COMPARISON:03/12/2015 FINDINGS: Lung volumes are increased. Heart size and vascularity are within normal limits. The lungs are clear of focal consolidation. No effusion, pneumothorax, or acute osseous abnormality. IMPRESSION: 1. Increased lung volumes. No focal consolidation. at 0229 Reported and si gned by: Bassem Louis MD CC: Kiersten Rodriguez MD; Aleks Bran DO Technologist: RT DWAIN Trnscrd Date/Time/By: 03/10/2020 (022) : By: [email or web address] Orig Print D/T: S: 03/10/2020 (023) PAGE 1 Signed Report SCR MAMM BILATERAL JALYN CAD [id number] 15:10:54 - SCR MAMM BILATERAL JALYN CAD DIGITALBILATERAL DIGITAL SCREENING MAMMOGRAM 3D/2D WITH CAD: 03/09/2020CLINICAL: Asymptomatic. Digital breast tomosynthesis was performed in addition to routine CC and MLO views. Current mammographic images were evaluated by either a [facility] M-Vu or a [employer] ImageChecker CAD (computer aided detection system). Comparison is made to exams dated 08/30/2018 mammogram, 08/02/2017 mammogram, and 07/10/2016 mammogram - [facility]. The tissue of both breasts is heterogeneously dense. This may lower the sensitivity of mammography. No suspicious mass, architectural distortion, malignant type calcification, or lymph node abnormality detected. IMPRESSION: NEGATIVEThere is no mammographic evidence of malignancy. Bilateral survey ultrasound to follow.Vinny Phillips M.D. ss/:03/09/2020 15:10:54 Entry: - 03/10/2020 1 1:52:49Imaging Technologist: Kathleen CRAIG, [facility]FWMamm[facility] luna BI-RADS: 1 NegativeBREAST ULTRASOUND [id number] 15:10:00- BREAST ULTRASOUND BILATERALULTRASOUND OF BOTH BREASTS: 03/09/2020Comparison is made to exams dated 08/30/2018 mammogram, 08/02/2017 mammogram, and 07/10/2016 mammogram - [facility] Color flow and real-time ultrasound of both breasts were performed. Castle scale images of the real-time examination were r eviewed. The breast tissue has heterogenous background echotexture. Bilateral survey ultrasound demonstrates no suspicious sonographic abnormality. No axill cammy lymphadenopathy was seen.IMPRESSION: NEGATIVE There is no sonographic eviden ce of malignancy. Resume annual screening mammography in one year. Vinny hardin M.D. ss/:03/09/2020 15:10:00 Entry: - 03/10/2020 11:54:31Imaging Te chnologist: Kathleen CRAIG, [facility]letter sent: BIRADS 1-2 Combo FU Letter Ultrasound BI-RADS: 1 Negative- CT ABD PELVIS W/[id number] 16:27:00 Name: JOHN PULIDO [facility] : 1960 Age/S: 59 / F [address] [place] [address] Blvd Unit #: [id number] Loc: [place] [address] Phys: Dillon Morel [employer]INTE[employer]CE MANAGER Acct: [id number] Dis Date: Status: REG ER PHONE #: [phone] Exam Date: 02/26/2020 1609 FAX #: [phone] Reason: transverse low abd and BL flank pain EXAMS: CPT CODE: [id number] CT ABD PELVIS W/CONT 73074 CT ABDOMEN AND PELVIS WITH CONTRAST HISTORY: transverse low abd and BL flank pain TECHNIQUE: Helical scan of the abdomen and pelvis was performed from the domes of the diaphragm through the symphysis. Reformatted sagittal and coronal images are included. IV CONTRAST: 100 cc Isovue 300. ORAL CONTRAST: 10 mL Gastrografin diluted with 900 mL water. DLP: 461 mGy-cm COMPARISON: CT 12/22/2013. FINDINGS: LOWER CHEST: Mild dependent atelectasis. LIVER: Unremarkable. GALLBLADDER, BILIARY: Unremarkable (non calcified stones may not be visible on CT). SPLEEN: Unremarkable. PANCREAS: Unremarkable. ADRENALS: Unremarkable. KIDNEYS: Unremarkable. BOWEL, MESENTERY: No evidence of acute bowel pathology. Incidental posterior gastric diverticulum near the fundus. Evidence of diverticulosis noted with primary involvement of the descending and sigmoid colonic segments. No mesenteric inflammation, adenopathy or mass. APPENDIX: Unremarkable. PERITONEUM: Unremarkable. RETROPERITONEUM: Unremarkable. VASCULAR: Unremarkable. LYMPH NODES: No adenopathy. PAGE 1 Signed Report (CONTINUED) Name: [facility] [facility] 1960 Age/S: 59 / F [address] [place] [address] Unit #: [id number] Loc: [place] [address] Phys: Dillon Morel NP Acct: [id number] Dis Date: Status: REG ER PHONE #: [phone] Exam Date: 02/26/2020 1609 FAX #: [phone] Reason: transverse low abd and BL f lank pain EXAMS: CP T CODE: [id number] CT ABD PELVIS W/CONT 82347 <Continued> ABDOMINAL WALL: No significant abnormality. PELVIS: Stable uterine fibroid, approximately 2 cm. No adnexal mass. MUSCULOSKELETAL: No significant skeletal abnormality is apparent. IMPRESSION: No acute finding. Mild colonic diverticulosis. Stable uterine fibroid. at 1627 Reported and signed by: Kory Holland M.D. CC: Kiersten Lincoln M.D.; Dillon Morel NP Technologist:RT Kameron(R) CTDI: DLP: Trnscb Date/Time: 02/26/2020 (1627) [email or web address] Orig Print D/T: S: 02/26/2020 (1630) PAGE 2 Signed Report CBC W/AUTO [id number] 15:59:00* Test Item Value Reference Range Interpretation Comments WHITE BLOOD CELL (test code = WBC) 9.11 x10 3/uL 4.5-11.0 N RED BLOOD CELL (test code = RBC) 4.61 x10 6/uL 3.54-5.02 N HEMOGLOBIN (test code = HGB) 13.9 g/dL 11.0-15.0 N HEMATOCRIT (test code = HCT) 43.8 % 33.0-45.0 N MEAN CELL VOLUME (test code = MCV) 95.0 fL 81.0-99.0 N MEAN CELL HGB (test code = MCH) 30.2 pg 27.0-33.0 N MEAN CELL HGB CONCETRATION (test code = MCHC) 31.7 g/dL 33.0-37. 0 L RED CELL DISTRIBUTION WIDTH CV (test code = RDW) 13.4 % 11.5- 14.5 N RED CELL DISTRIBUTION WIDTH SD (test code = RDW-SD) 46.6 fL 37 .0-54.0 N PLATELET COUNT (test code = PLT) 262 x10 3/uL 150-400 N MEAN PLATELET VOLUME (test code = MPV) 10.4 fL 7.0-9.0 H NEUTROPHIL % (test code = NT%) 69.5 % 56.0-77.0 N IMMATURE GRANULOCYTE % (test code = IG%) 0.2 % 0.0-2.0 N LYMPHOCYTE % (test code = LY%) 24.3 % 14.0-32.0 N MONOCYTE % (test code = MO%) 5.2 % 4.8-9.0 N EOSINOPHIL % (test code = EO%) 0.4 % 0.3-3.7 N BASOPHIL % (test code = BA%) 0.4 % 0.0-2.0 N NUCLEATED RBC % (test code = NRBC%) 0.0 % 0-0 N NEUTROPHIL # (test code = NT#) 6.33 x10 3/uL 2.0-7.6 N IMMATURE GRANULOCYTE # (test code = IG#) 0.02 x10 3/uL 0.00-0.03 N LYMPHOCYTE # (test code = LY#) 2.21 x10 3/uL 1.0-3.8 N MONOCYTE # (test code = MO#) 0.47 x10 3/uL 0.1-0.8 N EOSINOPHIL # (test code = EO#) 0.04 x10 3/uL 0.0-0.2 N BASOPHIL # (test code = BA#) 0.04 x10 3/uL 0.0-0.2 N NUCLEATED RBC # (test code = NRBC#) 0.00 x10 3/uL 0.0-0.1 N MANUAL DIFF REQUIRED (test code = MDIFF) NO COMPREHENSIVE METABOLIC [id number] 15:39:00* Test Item Value Reference Range Interpretation Comments SODIUM (test code = NA) 135 mEq/L 134-147 N POTASSIUM (test code = K) 4.4 mEq/L 3.4-5.0 N CHLORIDE (test code = CL) 106 mEq/L 100-108 N CARBON DIOXIDE (test code = CO2) 25 mEq/L 21-33 N ANION GAP (test code = GAP) 8 0-20 N GLUCOSE (test code = GLU) 98 mg/dL 70-110 N BLOOD UREA NITROGEN (test code = BUN) 13 mg/dL 7-18 N GLOMERULAR FILTRATION RATE (test code = GFR) 72.9 80-90 L Units of measure = ml/min/1.73 m2 CREATININE (test code = CREAT) 0.8 mg/dL 0.6-1.3 N TOTAL PROTEIN (test code = PROT) 8.0 g/dL 6.4-8.2 N ALBUMIN (test code = ALB) 3.50 g/dL 3.4-5.0 N CALCIUM (test code = CA) 9.1 mg/dL 8.0-10.5 N BILIRUBIN TOTAL (test code = BILT) 0.4 MG/DL <1.5 N SGOT/AST (test code = AST) 36 IUnit/L 15-37 N SGPT/ALT (test code = ALT) 24 IUnit/L 15-65 N ALKALINE PHOSPHATASE TOTAL (test code = ALKP) 90 IUnit/L 20-125 N [id number] 15:39:00* Test Item Value Reference Range Interpretation Comments LIPASE (test code = LIP) 143 IUnit/L 73-393 N [id number] 15:39:00* Test Item Value Reference Range Interpretation Comments TROPONIN-I (test code = TROPI) < 0.015 ng/mL 0.000-0.045 N Negative: <= 0.045 Positive: >= 0.046 Correlation with serial results, other cardiac markers andclinical findings is necessary to determine the clinicalsignificance of this result. Results using different methodologies should not be comparedto one another as quantitative results may vary by method. COMPREHENSIVE METABOLIC [id number] 15:38:00* Test Item Value Reference Range Interpretation Comments SODIUM (test code = NA) mEq/L 134-147 POTASSIUM (test code = K) mEq/L 3.4-5.0 CHLORIDE (test code = CL) mEq/L 100-108 CARBON DIOXIDE (test code = CO2) mEq/L 21-33 ANION GAP (test code = GAP) 0-20 GLUCOSE (test code = GLU) mg/dL 70-110 BLOOD UREA NITROGEN (test code = BUN) mg/dL 7-18 GLOMERULAR FILTRATION RATE (test code = GFR) 80-90 CREATININE (test code = CREAT) mg/dL 0.6-1.3 TOTAL PROTEIN (test code = PROT) g/dL 6.4-8.2 ALBUMIN (test code = ALB) g/dL 3.4-5.0 CALCIUM (test code = CA) mg/dL 8.0-10.5 BILIRUBIN TOTAL (test code = BILT) MG/DL <1.5 SGOT/AST (test code = AST) IUnit/L 15-37 SGPT/ALT (test code = ALT) IUnit/L 15-65 ALKALINE PHOSPHATASE TOTAL (test code = ALKP) IUnit/L 20-125 [id number] 15:38:00* Test Item Value Reference Range Interpretation Comments LIPASE (test code = LIP) IUnit/L 73-393 [id number] 15:38:00* Test Item Value Reference Range Interpretation Comments TROPONIN-I (test code = TROPI) < 0.015 ng/mL 0.000-0.045 N Negative: <= 0.045 Positive: >= 0.046 Correlation with serial results, other cardiac markers andclinical findings is necessary to determine the clinicalsignificance of this result. Results using different methodologies should not be comparedto one another as quantitative results may vary by method. URINALYSIS [id number] 15:35:00* Test Item Value Reference Range Interpretation Comments UA COLOR (test code = COLU) STRAW YEL/STRAW UA APPEARANCE (test code = APPU) CLEAR CLEAR UA GLUCOSE DIPSTICK (test code = DGLUU) NEGATIVE NEGATIVE UA BILIRUBIN DIPSTICK (test code = BILU) NEGATIVE NEGATIVE UA KETONE DIPSTICK (test code = KETU) NEGATIVE NEGATIVE UA SPECIFIC GRAVITY (test code = SGU) 1.002 1.005-1.030 L UA BLOOD DIPSTICK (test code = FLOYD) 2+ NEGATIVE A UA PH DIPSTICK (test code = ERIC) 6.0 5.0-7.0 N UA PROTEIN DIPSTICK (test code = PROU) NEGATIVE NEGATIVE UA UROBILINIOGEN DIPSTICK (test code = URO) 0.2 mg/dL 0.2-1.0 UA NITRITE DIPSTICK (test code = ELODIA) NEGATIVE NEGATIVE UA LEUKOCYTE ESTERASE DIPSTICK (test code = LEUU) NEGATIVE NEGA TIVE UA RBC (test code = RBCU) 0-3 RBC/HPF 0-3 UA WBC NO REFLEX (test code = WBCUCL) 0-3 WBC/HPF 0-3 UA BACTERIA (test code = BACU) TRACE /HPF NONE SEEN UA SQUAMOUS CELLS (test code = SQU) 0-5 /HPF NONE SEEN Urine color qewipegrhjfhi2900-65-03 00:55:00* Test Item Value Reference Range Interpretation Comments Urine Color (test code = 5778-6) MAHESH YELLOW [facility] sjmdcmu9097-47-57 00:55:00* Test Item Value Reference Range Interpretation Comments Urine Clarity (test code = 17864-0) CLOUDY CLEAR [facility] Urine by Test strip 2020-02-22 00:55:00* Test Item Value Reference Range Interpretation Comments Urine Specific [place] (test code = 5811-5) 1.025 1.010-1.02 5 [facility]Allen[facility] pH measurement by automated test [id number] 00:55:00* Test Item Value Reference Range Interpretation Comments Urine pH (test code = 28276-2) 5.5 5-7 [facility]AllenU[facility] leukocyte esterase detection by piddmniu9990-58-57 00:55:00* Test Item Value Reference Range Interpretation Comments Urine Leukocyte Esterase (test code = 5799-2) TRACE NEGATIVE [facility]AllenU[facility] nitrite oatlayrqd2554-52-03 00:55:00* Test Item Value Reference Range Interpretation Comments Urine Nitrite (test code = 21464-0) POSITIVE NEGATIVE [facility]AllenUrine protein measurement by test strip (mass/volume)2020-02-22 00:55:00* Test Item Value Reference Range Interpretation Comments Urine Protein (test code = 5804-0) NEGATIVE NEGATIVE [facility]AllenU[facility] glucose qjldpexgj9390-23-23 00:55:00* Test Item Value Reference Range Interpretation Comments Urine Glucose (UA) (test code = 2349-9) NEGATIVE NEGATIVE [facility]AllenUrine ketones detection by automated test ttkke1323-63-37 00:55:00* Test Item Value Reference Range Interpretation Comments Urine Ketones (test code = 25888-1) TRACE NEGATIVE [facility]AllenUrine urobilinogen measurement by test strip (mass/volume)2020-02-22 00:55:00* Test Item Value Reference Range Interpretation Comments Urine Urobilinogen (test code = 37657-1) 2.0 0.2-1 [facility]Allen[facility] total bilirubin measurement (mass/volume)2020-02-22 00:55:00* Test Item Value Reference Range Interpretation Comments Urine Bilirubin (test code = 1978-6) SMALL NEGATIVE [facility]AllenU[facility] erythrocytes tjfyxdzkn7000-28-03 00:55:00* Test Item Value Reference Range Interpretation Comments Urine Blood (test code = 23735-7) SMALL NEGATIVE [facility] McAllenAutomated urine sediment leukocyte count by microscopy (number/high power field)2020-02-22 00:55:00* Test Item Value Reference Range Interpretation Comments Urine WBC (test code = 5821-4) 11-20 0-5 [facility]AllenErythrocytes detection in urine sediment by light sakgstzbfp2928-71-37 00:55:00* Test Item Value Reference Range Interpretation Comments Urine RBC (test code = 27627-6) 11-20 0-5 [facility]AllenBacteria detection in urine sediment by light mpjtzijphq0178-87-52 00:55:00* Test Item Value Reference Range Interpretation Comments Urine Bacteria (test code = 72317-2) MODERATE NONE [facility] McAllenEpithelial cells detection in urine sediment by light dpqtkopqqm3457-37-48 00:55:00* Test Item Value Reference Range Interpretation Comments Urine Epithelial Cells (test code = 68101-8) MODERATE NONE [facility]AllenUS RENAL RETROPERITONEAL [id number] 10:52:00 [facility] [address] [place] [address] Patient Name: JOHN PULIDO MR #: [id number] : 1960 Age/Sex: 58/F Req #: [id number] Adm Physician: Ordered by: JOAQUIN RECINOS MD Report #: [id number] Location: Room/Bed: Procedure: [id number] US/US RENAL RETROPERITONEAL COMP Exam Date: 07/28/19 Exam Time: 1010 REPORT STATUS: Si gned EXAM: Renal Ultrasound INDICATION: [id number] UTI COMPARISON: None TECHNIQUE: Transverse and longitudinal images of the kid neys and bladder were obtained. FINDINGS: Right Kidney: Le ngth: 10.4 cm Appearance: Normal echogenicity. Collecting system: No hydro nephrosis Stones: None Cyst/Mass: None Left Kidney: Length: 10.6 cm Appearance: Normal echogenicity. Collecting system: No hydronephrosis St ones: None Cyst/Mass: None Bladder: No mass or calculi. Estimated volu me of 7 cc. IMPRESSION: No hydronephrosis or renal calculi. Signed b y: Enid Michaels MD on 07/28/2019 10:53 AM Dictated By: ENID MICHAELS MD Elec tronically Signed By: ENID MICHAELS MD on 07/28/19 1053 Transcribed By: NAVYA on 07/28/19 1053 COPY TO: JOAQUIN RECINOS MD Blood Culture 2019-04-27 14:32:00* Test Item Value Reference Range Interpretation Comments Blood Culture (test code = 41198686) NO GROWTH AFTER 48 HOURS [facility] Centerodium [id number] 06:04:00* Test Item Value Reference Range Interpretation Comments Sodium Level (test code = 2951-2) 140 136-145 [facility] Zdhyu9644-82-53 06:04:00* Test Item Value Reference Range Interpretation Comments Potassium Level (test code = 2823-3) 3.8 3.5-5.1 [facility]AllenChloride Cdkrt5077-34-60 06:04:00* Test Item Value Reference Range Interpretation Comments Chloride Level (test code = 2075-0) 108 98-107 H [facility] McAllenCarbon Dioxide Cmxaq2878-74-08 06:04:00* Test Item Value Reference Range Interpretation Comments Carbon Dioxide Level (test code = 2028-9) 23 22-29 [facility] McAllenAnion Epu7275-60-74 06:04:00* Test Item Value Reference Range Interpretation Comments Anion Gap (test code = 01090-0) 12.8 8-16 [facility] McAllenBlood Urea Wcjaxqzj0481-97-45 06:04:00* Test Item Value Reference Range Interpretation Comments Blood Urea Nitrogen (test code = 3094-0) 14 7-26 [facility] McAllenCreatinine2019-09-21 06:04:00* Test Item Value Reference Range Interpretation Comments Creatinine (test code = 2160-0) 0.74 0.57-1.11 [facility]AllenBUN/Creatinine Jiqir9539-78-36 06:04:00* Test Item Value Reference Range Interpretation Comments BUN/Creatinine Ratio (test code = 3097-3) 19 6-25 [facility] McAllenEstimat Glomerular Filtration Rate 2019-04-26 06:04:00* Test Item Value Reference Range Interpretation Comments Estimat Glomerular Filtration Rate (test code = 703746211) > 60 >60 Ranges were taken from the National Kidney Disease Education Program and the [facility] hospitalal Kidney Foundation literature.Reference ranges:60 or greater: Cboutc20-19 ( for 3 consecutive months): Chronic kidney disease 15 or less: Kidney failureSouth Texas Health System McAllenGlucose Yoxwr4102-85-11 06:04:00* Test Item Value Reference Range Interpretation Comments Glucose Level (test code = ZUB2746) 133 74-118 H [facility] McAllenCalcium Yjrvj3020-86-71 06:04:00* Test Item Value Reference Range Interpretation Comments Calcium Level (test code = 41880-2) 8.0 8.4-10.2 L [facility] McAllenTotal Dbsqxpqze5379-51-73 06:04:00* Test Item Value Reference Range Interpretation Comments Total Bilirubin (test code = 1975-2) 0.3 0.2-1.2 [facility] McAllenAspartate Amino Transf (AST/SGOT) 2019-04-26 06:04:00* Test Item Value Reference Range Interpretation Comments Aspartate Amino Transf (AST/SGOT) (test code = Aspartate Amino Transf (AST/SGOT)) 22 5-34 [facility] McAllenAlanine Aminotransferase (ALT/SGPT) 2019-04-26 06:04:00* Test Item Value Reference Range Interpretation Comments Alanine Aminotransferase (ALT/SGPT) (test code = 1742-6) 11 0-55 [facility] McAllenTotal Hzoswku5360-50-94 06:04:00* Test Item Value Reference Range Interpretation Comments Total Protein (test code = 2885-2) 6.7 6.5-8.1 [facility] McAllenAlbumin2019-09-21 06:04:00* Test Item Value Reference Range Interpretation Comments Albumin (test code = 1751-7) 2.9 3.5-5.0 L [facility] McAllenGlobulin2019-09-21 06:04:00* Test Item Value Reference Range Interpretation Comments Globulin (test code = 80781-3) 3.8 2.3-3.5 H [facility] McAllenAlbumin/Globulin Jjmla1397-73-00 06:04:00 * Test Item Value Reference Range Interpretation Comments Albumin/Globulin Ratio (test code = 1759-0) 0.8 0.8-2.0 [facility] McAllenAlkaline Knpfajfxlpr3476-51-43 06:04:00* Test Item Value Reference Range Interpretation Comments Alkaline Phosphatase (test code = 6768-6) 60 40-150 [facility] McAllenWhite Blood Ahiqa8105-85-51 05:50:00* Test Item Value Reference Range Interpretation Comments White Blood Count (test code = 6690-2) 4.37 4.8-10.8 L [facility] McAllenRed Blood Bpsva5605-56-87 05:50:00* Test Item Value Reference Range Interpretation Comments Red Blood Count (test code = 789-8) 3.92 3.6-5.1 [facility] McAllenHemoglobin2019-09-21 05:50:00* Test Item Value Reference Range Interpretation Comments Hemoglobin (test code = 21088-3) 11.7 12.0-16.0 L [facility] McAllenHematocrit2019-09-21 05:50:00* Test Item Value Reference Range Interpretation Comments Hematocrit (test code = 4544-3) 36.5 34.2-44.1 [facility] McAllenMean Corpuscular Ygwobd8185-19-88 05:50:00* Test Item Value Reference Range Interpretation Comments Mean Corpuscular Volume (test code = 787-2) 93.1 81-99 [facility] McAllenMean Corpuscular Dmyjosangc7242-69-02 05:50:00* Test Item Value Reference Range Interpretation Comments Mean Corpuscular Hemoglobin (test code = 785-6) 29.8 28-32 [facility] McAllenMean Corpuscular Hemoglobin Concent 2019-04-26 05:50:00* Test Item Value Reference Range Interpretation Comments Mean Corpuscular Hemoglobin Concent (test code = 786-4) 32.1 31-35 [facility] McAllenRed Cell Distribution Dvepe6279-45-83 05:50:00* Test Item Value Reference Range Interpretation Comments Red Cell Distribution Width (test code = 21638-6) 13.6 11.7 -14.4 [facility] McAllenPlatelet Gwwmz9860-21-65 05:50:00* Test Item Value Reference Range Interpretation Comments Platelet Count (test code = 777-3) 167 140-360 [facility] McAllenNeutrophils (%) (Auto)2019-04-26 05:50:00 * Test Item Value Reference Range Interpretation Comments Neutrophils (%) (Auto) (test code = 65195-7) 79.5 38.7-80.0 [facility] McAllenLymphocytes (%) (Auto)2019-04-26 05:50:00 * Test Item Value Reference Range Interpretation Comments Lymphocytes (%) (Auto) (test code = 736-9) 15.3 18.0-39.1 L [facility] McAllenMonocytes (%) (Auto)2019-04-26 05:50:00* Test Item Value Reference Range Interpretation Comments Monocytes (%) (Auto) (test code = 5905-5) 4.8 4.4-11.3 [facility] McAllenEosinophils (%) (Auto)2019-04-26 05:50:00 * Test Item Value Reference Range Interpretation Comments Eosinophils (%) (Auto) (test code = 713-8) 0.0 0.0-6.0 [facility] McAllenBasophils (%) (Auto)2019-04-26 05:50:00* Test Item Value Reference Range Interpretation Comments Basophils (%) (Auto) (test code = 706-2) 0.2 0.0-1.0 [facility] McAllenIM GRANULOCYTES %2019-04-26 05:50:00* Test Item Value Reference Range Interpretation Comments IM GRANULOCYTES % (test code = IM GRANULOCYTES %) 0.2 0.0- 1.0 [facility] McAllenNeutrophils # (Auto)2019-04-26 05:50:00* Test Item Value Reference Range Interpretation Comments Neutrophils # (Auto) (test code = 751-8) 3.5 2.1-6.9 [facility] McAllenLymphocytes # (Auto)2019-04-26 05:50:00* Test Item Value Reference Range Interpretation Comments Lymphocytes # (Auto) (test code = 29787-6) 0.7 1.0-3.2 L [facility] McAllenMonocytes # (Auto)2019-04-26 05:50:00* Test Item Value Reference Range Interpretation Comments Monocytes # (Auto) (test code = 742-7) 0.2 0.2-0.8 [facility] McAllenEosinophils # (Auto)2019-04-26 05:50:00* Test Item Value Reference Range Interpretation Comments Eosinophils # (Auto) (test code = 711-2) 0.0 0.0-0.4 [facility] McAllenBasophils # (Auto)2019-04-26 05:50:00* Test Item Value Reference Range Interpretation Comments Basophils # (Auto) (test code = 704-7) 0.0 0.0-0.1 [facility] McAllenAbsolute Immature Granulocyte (auto 2019-04-26 05:50:00* Test Item Value Reference Range Interpretation Comments Absolute Immature Granulocyte (auto (mia t code = Absolute Immature Granulocyte (auto) 0.01 0-0.1 [facility] McAllenLactic Acid Qqjuh0999-81-83 19:15:00* Test Item Value Reference Range Interpretation Comments Lactic Acid Level (test code = Lactic Acid Level) 9.5 4.5- 19.8 [facility] McAllenCHEST 2 OFHVM8787-12-95 15:59:00 [place] [address] Patient Name: JOHN PULIDO MR #: [id number] : 1960 Age/Sex: 58/F Req #: [id number] Adm Physician: Ordered by: NATHANAEL SANCHEZ MD Report #: [id number] Location: ER Room/Bed: Procedure: [id number] DX/CHEST 2 VIEWS Exam Date: 04/25/19 Exam Time: 1535 REPORT STATUS: Signed Chest, PA and lateral. History: Sepsis. Comparison: None available. Discus chan: The heart is within normal limits size. The cardiomediastinal contours a re unremarkable. There is a patchy opacity at the left base. The right lung is grossly clear. There is no sizable pleural effusion or pneumothorax. There ar e mild degenerative changes of the thoracic spine. IMPRESSION: Patchy opacity at the left base may be secondary to pneumonitis or atelectasis. Si gned by: Regis Cortez MD on 04/25/2019 4:00 PM Dictated By: REGIS CORTEZ MD 1600 [address]quez scribed By: NAVYA on 04/25/19 1600 COPY TO: NATHANAEL SANCHEZ MD Creatine Kinase [id number] 15:50:00* Test Item Value Reference Range Interpretation Comments Creatine Kinase MB (test code = 63599-8) 0.20 0-5.0 [facility]AllenTroponin [id number] 15:50:00* Test Item Value Reference Range Interpretation Comments Troponin I (test code = ZKO0602) 0.001 0-0.300 [facility]AllenCreatine Gueixz2019-05-02 15:41:00* Test Item Value Reference Range Interpretation Comments Creatine Kinase (test code = 2157-6) 33 29-168 [facility]AllenInfluenza Virus Types A,B Antigen 2019-04-25 15:36:00* Test Item Value Reference Range Interpretation Comments Influenza Virus Types A,B Antigen (test code = 86733-7) POSITIVE FLU A NEGATIVE H Results called to KRISSY FARR at 1534 on 04/25/19 by DENNIS STOKES. RB OK.Resul ts LEFT MSG TO to MELODY GRANADO in infection control at 1534 on 04/25/19 by DENNIS STOKES.[facility]AllenUrine ZKS1400-47-63 15:24:00* Test Item Value Reference Range Interpretation Comments Urine WBC (test code = 5821-4) 11-20 0-5 H [facility]AllenUrine JVI9946-53-13 15:24:00* Test Item Value Reference Range Interpretation Comments Urine RBC (test code = 42705-7) 6-10 0-5 H [facility]AllenUrine Gtsaohju9399-84-18 15:24:00* Test Item Value Reference Range Interpretation Comments Urine Bacteria (test code = 12301-0) MANY NONE H [facility]AllenUrine Epithelial Pqxqo9108-61-32 15:24:00 * Test Item Value Reference Range Interpretation Comments Urine Epithelial Cells (test code = 65661-4) MODERATE NONE [facility]AllenUrine Amorphous Aqrypyhq1611-27-36 15:24:00* Test Item Value Reference Range Interpretation Comments Urine Amorphous Sediment (test code = 8246-1) MODERATE FEW H [facility] McAllenGroup A Streptococcus Iavlnx2251-11-44 15:23:00* Test Item Value Reference Range Interpretation Comments Group A Streptococcus Screen (test code = 87769-7) POSITIVE NEG ATIVE [facility]AllenUrine Ozbaf4103-69-76 15:19:00* Test Item Value Reference Range Interpretation Comments Urine Color (test code = 5778-6) YELLOW YELLOW [facility]AllenU[facility] Mbkuueg3549-10-15 15:19:00* Test Item Value Reference Range Interpretation Comments Urine Clarity (test code = 33466-0) CLOUDY CLEAR H [facility]AllenUrine Specific Hkgoivt8388-09-29 15:19:00 * Test Item Value Reference Range Interpretation Comments Urine Specific [place] (test code = 5811-5) 1.020 1.010-1.02 5 [facility]AllenUrine lE7921-65-74 15:19:00* Test Item Value Reference Range Interpretation Comments Urine pH (test code = 31490-2) 6 5-7 [facility]Allen[facility] Leukocyte Rvzcvqfi0905-45-01 15:19:00* Test Item Value Reference Range Interpretation Comments Urine Leukocyte Esterase (test code = 5799-2) MODERATE NEGATIVE [facility]AllenU[facility] Zifpeuz4375-31-36 15:19:00* Test Item Value Reference Range Interpretation Comments Urine Nitrite (test code = 03212-0) NEGATIVE NEGATIVE [facility]AllenU[facility] Zysmsps1176-53-21 15:19:00* Test Item Value Reference Range Interpretation Comments Urine Protein (test code = 5804-0) TRACE NEGATIVE H [facility]AllenUrine Glucose (UA)2019-04-25 15:19:00* Test Item Value Reference Range Interpretation Comments Urine Glucose (UA) (test code = 2349-9) NEGATIVE NEGATIVE [facility]AllenU[facility] Lmzzsdm3186-67-02 15:19:00* Test Item Value Reference Range Interpretation Comments Urine Ketones (test code = 53248-2) NEGATIVE NEGATIVE [facility] Fwvatykebhff3807-89-12 15:19:00* Test Item Value Reference Range Interpretation Comments Urine Urobilinogen (test code = 19422-5) 0.2 0.2-1 [facility]AllenU[facility] Qsvtslgvw1661-05-78 15:19:00* Test Item Value Reference Range Interpretation Comments Urine Bilirubin (test code = 1978-6) NEGATIVE NEGATIVE [facility] Wfigg5017-01-25 15:19:00* Test Item Value Reference Range Interpretation Comments Urine Blood (test code = 55666-9) 3+ NEGATIVE H [facility] McAllenBREAST ULTRASOUND FSLSISNQL0954-23-33 09:37:26- BREAST ULTRASOUND BILATERALULTRASOUND OF BOTH BREASTS AND BOTH AXILLA: 02/17/2019CLINICAL: Supplemental Screening for Dense Breast. No prior exams were available for comparison. Real-time ultrasound of both breasts and both axilla and clinical breast exam was performed. No abnormalities were seen sonographically in either breast or either axilla. Clinical breast exam was unremarkable.IMPRESSION: NEGATIVE - FOLLOW-UP RECOMMENDEDThere is no sonographic evidence of malignancy. Patient has been informed that she has areas of dense breast tissue that could make it difficult to find a small cancer. A screening mammogram and supplemental ultrasound for dense breast tissue is recommended in 6 months. Farideh Daniels M.D. dm/:02/17/2019 09:37:26 Entry: bassem - 02/18/2019 08:39:12Imaging Technologist: Natty CRAIG, [facility]-FWletter sent: BIRADS 1-2 Normal Ultrasound BI-RADS: 1 NegativeHEPATIC FUNCTION PANEL 2018-10-30 11:33:00* Test Item Value Reference Range Interpretation Comments TOTAL PROTEIN (test code = PROT) 9.0 gram/dL 6.4-8.2 H ALBUMIN (test code = ALB) 4.2 g/dL 3.4-5.0 N GLOBULIN (test code = GLOB) 4.8 gram/dL 2.7-4.2 H ALBUMIN/GLOBULIN RATIO (test code = A/G) 0.9 0.75-1.50 N BILIRUBIN TOTAL (test code = BILT) 0.50 mg/dL 0.0-1.0 N BILIRUBIN DIRECT (test code = BILD) 0.19 mg/dL 0.0-0.20 N SGOT/AST (test code = AST) 141 IUnit/L 15-37 H SGPT/ALT (test code = ALT) 262 IUnit/L 12-78 H ALKALINE PHOSPHATASE TOTAL (test code = ALKP) 972 IUnit/L 45-117 H Note change in reference range due to change in reagent. BASIC METABOLIC [id number] 16:20:00* Test Item Value Reference Range Interpretation Comments SODIUM (test code = NA) 138 mmol/L 136-145 N POTASSIUM (test code = K) 3.6 mmol/L 3.5-5.1 N CHLORIDE (test code = CL) 106.0 mmol/L 98-107 N CARBON DIOXIDE (test code = CO2) 25.0 mmol/L 21-32 N ANION GAP (test code = GAP) 10.6 10-20 N GLUCOSE (test code = GLU) 75 mg/dL 74-106 N BLOOD UREA NITROGEN (test code = BUN) 16 mg/dL 7-18 N GLOMERULAR FILTRATION RATE (test code = GFR) > 60 mL/min >=60 Estimated GFR by using Modified MDRD formula.Chronic kidney disease is defined as either kidney damageor GFR <60 mL/min/1.73 m2 for >3 months. CREATININE (test code = CREAT) 0.70 mg/dL 0.55-1.02 N Note change in reference range due to change in reagent. BUN/CREATININE RATIO (test code = BUN/CREA) 22.9 10-20 H CALCIUM (test code = CA) 9.8 mg/dL 8.5-10.1 N BASIC METABOLIC [id number] 16:18:00* Test Item Value Reference Range Interpretation Comments SODIUM (test code = NA) 138 mmol/L 136-145 N POTASSIUM (test code = K) 3.6 mmol/L 3.5-5.1 N CHLORIDE (test code = CL) 106.0 mmol/L 98-107 N CARBON DIOXIDE (test code = CO2) mmol/L 21-32 ANION GAP (test code = GAP) 10-20 GLUCOSE (test code = GLU) mg/dL 74-106 BLOOD UREA NITROGEN (test code = BUN) mg/dL 7-18 GLOMERULAR FILTRATION RATE (test code = GFR) mL/min >=60 CREATININE (test code = CREAT) mg/dL 0.55-1.02 BUN/CREATININE RATIO (test code = BUN/CREA) 10-20 CALCIUM (test code = CA) mg/dL 8.5-10.1 MRI MRCP [id number] 16:26:00 [place] [address] Patient Name: JOHN PULIDO MR #: [id number] : 1960 Age/Sex: 57/F Req #: [id number] Adm Physician: Ordered by: LIAM LYNN PA-C Report #: [id number] Location: MRI Room/Bed: Procedure: [id number] MRI/MRI MRCP WO Exam Date: 10/17/18 Exam Time: 10 10 REPORT STATUS: Signed MRCP CPT code: 32361 History: Right upper quadrant pain for 2 weeks, elevated LFTs Comparison: CT abdomen/pelvis 10/10/2018, right upper quadrant ultrasou nd 04/13/2017. Technique: Multiplanar, multisequence images of the abdomen were obtained per MRCP protocol. 3D volume rendered reformation images of th e biliary tree were performed. No intravenous gadolinium was administered. Findings: Images are motion degraded. There is diffuse intrahepatic bili cammy ductal dilatation, particularly of the central intrahepatic ducts. No evid ence of beading or narrowing. The common hepatic duct measures 1.[address] The cystic duct is mildly prominent with a low insertion. The common bile duct measures 1.4 cm in diameter with squaring of the shoulders at the ampull a. An intraluminal filling defect in the distal common bile duct measures 6 mm (series 8, image 13, series 11, image 5). By CT, the common bile duct measur ed 11 mm in diameter. The pancreas duct is visible throughout its course an d measures 4 mm just above the ampulla and in the head. The pancreas duct in t he body and tail are normal in diameter. The gallbladder is absent. Liver: Normal signal. A cyst in the left lobe identified on ultrasound is in s egment 2 and abuts the capsule. This measures 6 mm. Spleen: Normal size an d signal. No mass Pancreas: Normal signal. No mass Kidneys: No hydronephros is. No mass Adrenal glands: No mass Lymph nodes: No enlarged abdominal or periaortic lymph nodes. No enlarged lymph nodes in the small bowel mesenter y. Bowel: Stomach and visualized portions of the small bowel and large bow el are normal in diameter with normal wall thickness. The visualized portion o f the appendix is normal. Pelvis: Visualized pelvic organs are unremarkab le. Vasculature: Portal vein, IVC, and aorta have normal flow voids. 2 james chelly supply the right kidney. A single artery supplies the left kidney. P eritoneum/retroperitoneum: No free fluid or fluid collection. Lung bases: C lear. The heart is enlarged. No pericardial or pleural effusions. Bones: No rmal marrow signal. No focal osseous lesions. Soft tissues: Unremarkable. IMPRESSION: 1. Choledocholithiasis with a 6 mm stone in the distal com mon bile duct. Cholecystectomy. 2. Significant intrahepatic and intrahepati c biliary ductal dilatation. 3. Mild prominence of the pancreas duct in the h ead. 4. Subcentimeter cyst in the left lobe of the liver is stable. Than k you for your referral. Signed by: Dr. Ros Dickens MD on 10/17/2018 4:37 PM Dictated By: ROS DICKENS MD [id number] Transcribed By: NAVYA on 10/17/18 1637 COPY TO: LIAM LYNN PA-C Achbsk5499-17-38 07:15:00* Test Item Value Reference Range Interpretation Comments Lipase (test code = 3040-3) [address] [place], [place] [address]Lipase2019-03-07 07:15:00* Test Item Value Reference Range Interpretation Comments Lipase (test code = 3040-3) 35 78 [facility]AllenCT ABDOM[facility]/PELVIS G0795-95-02 06:46:00 [facility] [address] [place] [address] Patient Name: JOHN PULIDO MR #: [id number] : [birth year] Age/Sex: 57/F Req #: [id number] Adm Physician: Ordered by: CORBIN PARSONS MD Report #: [id number] Location: ER Room/Bed: Procedure: [id number] CT/CT ABDOMEN/PELVIS W Exam Date: Exam Time: REPORT STATUS: Signed EXAM: CT Abdo men and Pelvis WITH contrast INDICATION: Back pain and abdominal pain. abd pain COMPARISON: None. TECHNIQUE: Abdomen and pelvis were scanned utili [employer] a multidetector helical scanner from the lung base to the pubic symphysis after administration of IV contrast. Coronal and sagittal reformations were o btained. Routine protocol was performed. Scan was performed when during portal venous phase. IV CONTRAST: 100 mL of Isovue 370 ORAL CONTRAST : Water COMPLICATIONS: None RADIATION DOSE: Total D LP: 548.91 mGy*cm Estimated effective dose: (DLP x 0.015 x size factor) m Sv Dose modulation, iterative reconstruction, and/or weight based adjustm ent of the mA/kV was utilized to reduce the radiation dose to as low as reason ably achievable. FINDINGS: LINES and TUBES: None. LOWER THORAX : There is bibasilar atelectasis. HEPATOBILIARY: No focal hepatic les ions. There is intra- and extra- hepatic biliary dilation likely post cholecys tectomy reservoir effect. GALLBLADDER: Cholecystectomy. SPLEEN: No s plenomegaly. PANCREAS: No focal masses or ductal dilatation. ADRENA LS: No adrenal nodules KIDNEYS/URETERS: Kidneys enhance symmetrically. No hydronephrosis. No cystic or solid mass lesions. No stones. GI TRACT : No abnormal distention, wall thickening, or evidence of bowel obstruction. There are diverticula within the colon without evidence of diverticulitis. Ap pendix is normal. PELVIC ORGANS/BLADDER: Unremarkable. LYMPH NODES: No lymphadenopathy. VESSELS: Unremarkable. PERITONEUM / RETROPERITONEUM: No free air or fluid. BONES: Unremarkable. SOFT TISSUES: Foci of soft tissue stranding in the gluteal soft tissues likely related to subcutaneous i njections. IMPRESSION: No acute abnormalities. Signed by: DR. Mitchell Marino MD on 10/10/2018 6:51 AM Dictated By: JUAN rogers Signed By: JUAN MARINO MD on 10/10/18650 Transcribed By: NAVYA on 0 10/10/18650 COPY TO: CORBIN PARSONS MD Total Uzhauya1376-32-64 06:21:00* Test Item Value Reference Range Interpretation Comments Total Protein (test code = 2885-2) 7.0 6.5-8.1 [facility]AllenGlobulin2019-03-07 06:21:00* Test Item Value Reference Range Interpretation Comments Globulin (test code = 09577-4) 3.7 2.3-3.5 H [facility]AllenAlbumin/Globulin Ssedh3285-70-40 06:21:00 * Test Item Value Reference Range Interpretation Comments Albumin/Globulin Ratio (test code = 1759-0) 0.9 0.8-2.0 [facility]AllenUrine Uertl8607-86-00 06:06:00* Test Item Value Reference Range Interpretation Comments Urine Color (test code = 5778-6) MAHESH YELLOW H [facility]AllenUrine Rzxckjj8844-60-74 06:06:00* Test Item Value Reference Range Interpretation Comments Urine Clarity (test code = 22446-3) HAZY CLEAR [facility]AllenUrine Specific Pttcozw0977-11-07 06:06:00 * Test Item Value Reference Range Interpretation Comments Urine Specific [place] (test code = 5811-5) 1.015 1.010-1.02 5 [facility]AllenUrine jS2605-13-33 06:06:00* Test Item Value Reference Range Interpretation Comments Urine pH (test code = 82193-5) 8 5-7 H [facility] Leukocyte Qusckbun9653-05-75 06:06:00* Test Item Value Reference Range Interpretation Comments Urine Leukocyte Esterase (test code = 5799-2) 2+ NEGATIVE H [facility] Sxkhyfc6937-90-80 06:06:00* Test Item Value Reference Range Interpretation Comments Urine Nitrite (test code = 81370-9) NEGATIVE NEGATIVE [facility] Paxialu7120-12-49 06:06:00* Test Item Value Reference Range Interpretation Comments Urine Protein (test code = 5804-0) 1+ NEGATIVE H [facility] Glucose (UA)2018-10-10 06:06:00* Test Item Value Reference Range Interpretation Comments Urine Glucose (UA) (test code = 2349-9) NEGATIVE NEGATIVE [facility] Jomafmv2377-14-36 06:06:00* Test Item Value Reference Range Interpretation Comments Urine Ketones (test code = 67170-8) NEGATIVE NEGATIVE [facility]AllenUrine Fsvgavieprkl4850-99-56 06:06:00* Test Item Value Reference Range Interpretation Comments Urine Urobilinogen (test code = 57605-6) 0.2 0.2-1 [facility]AllenU[facility] Smqxqgbew8072-30-42 06:06:00* Test Item Value Reference Range Interpretation Comments Urine Bilirubin (test code = 1978-6) 2+ NEGATIVE H [facility] Kehzo8564-78-05 06:06:00* Test Item Value Reference Range Interpretation Comments Urine Blood (test code = 43220-1) 2+ NEGATIVE H [facility]AllenU[facility] QJW2087-65-78 06:06:00* Test Item Value Reference Range Interpretation Comments Urine WBC (test code = 5821-4) >50 0-5 H [facility]AllenUrine DHK9892-12-79 06:06:00* Test Item Value Reference Range Interpretation Comments Urine RBC (test code = 31413-6) 21-50 0-5 H [facility]AllenU[facility] Bbxykzmw6371-19-28 06:06:00* Test Item Value Reference Range Interpretation Comments Urine Bacteria (test code = 43504-6) MANY NONE [facility] Epithelial Krpiz2325-97-56 06:06:00 * Test Item Value Reference Range Interpretation Comments Urine Epithelial Cells (test code = 40047-8) MANY NONE [facility] Transitional Epithelial Cells 2018-10-10 06:06:00* Test Item Value Reference Range Interpretation Comments Urine Transitional Epithelial Cells (test code = 8249-5) FEW NONE H [facility]AllenUrine Renal Epithelial Vikwp0325-16-20 06:06:00* Test Item Value Reference Range Interpretation Comments Urine Renal Epithelial Cells (test code = 47547-6) FEW NON E H [facility]AllenUrine Transitional Epithelial Cells 2018-10-10 06:06:00* Test Item Value Reference Range Interpretation Comments Urine Transitional Epithelial Cells (test code = 8249-5) FEW NONE H [facility]AllenUrine Renal Epithelial Qhadi1743-52-96 06:06:00* Test Item Value Reference Range Interpretation Comments Urine Renal Epithelial Cells (test code = 33953-2) FEW NON E [facility] Gormt9901-46-04 06:04:00* Test Item Value Reference Range Interpretation Comments Sodium Level (test code = 2951-2) 136 136-145 [facility]AllenPotassium Fffrd5787-60-20 06:04:00* Test Item Value Reference Range Interpretation Comments Potassium Level (test code = 2823-3) 3.6 3.5-5.1 [facility] McAllenChloride Libbl2158-67-94 06:04:00* Test Item Value Reference Range Interpretation Comments Chloride Level (test code = 2075-0) 102 98-107 [facility] McAllenCarbon Dioxide Njysz8869-27-27 06:04:00* Test Item Value Reference Range Interpretation Comments Carbon Dioxide Level (test code = 2028-9) 26 22-29 [facility] McAllenAnion Cwd3174-39-08 06:04:00* Test Item Value Reference Range Interpretation Comments Anion Gap (test code = 97116-4) 11.6 8-16 [facility]AllenBlood Urea Ylzzplwg6473-68-76 06:04:00* Test Item Value Reference Range Interpretation Comments Blood Urea Nitrogen (test code = 3094-0) 16 7-26 [facility] McAllenCreatinine2019-03-07 06:04:00* Test Item Value Reference Range Interpretation Comments Creatinine (test code = 2160-0) 0.72 0.57-1.11 [facility]AllenBUN/Creatinine Rchhg4833-02-29 06:04:00* Test Item Value Reference Range Interpretation Comments BUN/Creatinine Ratio (test code = 3097-3) 22 6- [facility] McAllenEstimat Glomerular Filtration Rate 2018-10-10 06:04:00* Test Item Value Reference Range Interpretation Comments Estimat Glomerular Filtration Rate (test code = 930642827) > 60 >60 Ranges were taken from the National Kidney Disease Education Program and the [facility] Foundation literature.Reference ranges:60 or greater: Wcdyeo49-11 ( for 3 consecutive months): Chronic kidney disease 15 or less: Kidney failureSouth [facility] Health System McAllenGlucose Duqpi6633-05-54 06:04:00* Test Item Value Reference Range Interpretation Comments Glucose Level (test code = WMM4411) 100 74-118 [facility] McAllenCalcium Xatdj2773-06-96 06:04:00* Test Item Value Reference Range Interpretation Comments Calcium Level (test code = 71110-9) 9.1 8.4-10.2 [facility] McAllenTotal Qrazwscht3933-34-58 06:04:00* Test Item Value Reference Range Interpretation Comments Total Bilirubin (test code = 1975-2) 2.2 0.2-1.2 H [facility] McAllenAspartate Amino Transf (AST/SGOT) 2018-10-10 06:04:00* Test Item Value Reference Range Interpretation Comments Aspartate Amino Transf (AST/SGOT) (test code = Aspartate Amino Transf (AST/SGOT)) 577 5-34 H [facility] McAllenAlanine Aminotransferase (ALT/SGPT) 2018-10-10 06:04:00* Test Item Value Reference Range Interpretation Comments Alanine Aminotransferase (ALT/SGPT) (test code = 1742-6) 381 0-55 H [facility] McAllenAlbumin2019-03-07 06:04:00* Test Item Value Reference Range Interpretation Comments Albumin (test code = 1751-7) 3.2 3.5-5.0 L [facility] McAllenAlkaline Dkzmygwvcgq2933-84-79 06:04:00* Test Item Value Reference Range Interpretation Comments Alkaline Phosphatase (test code = 6768-6) 278 40-150 H [facility] McAllenLactic Acid Wresl3988-84-63 05:59:00* Test Item Value Reference Range Interpretation Comments Lactic Acid Level (test code = Lactic Acid Level) 16.9 4.5- 19.8 [facility] McAllenWhite Blood Rnzgq3747-62-97 05:43:00* Test Item Value Reference Range Interpretation Comments White Blood Count (test code = 6690-2) 4.69 4.8-10.8 L [facility] McAllenRed Blood Kcgjv0630-03-65 05:43:00* Test Item Value Reference Range Interpretation Comments Red Blood Count (test code = 789-8) 4.02 3.6-5.1 [facility]AllenHemoglobin2019-03-07 05:43:00* Test Item Value Reference Range Interpretation Comments Hemoglobin (test code = 15323-4) 12.1 12.0-16.0 [facility]AllenHematocrit2019-03-07 05:43:00* Test Item Value Reference Range Interpretation Comments Hematocrit (test code = 4544-3) 35.4 34.2-44.1 [facility] McAllenMean Corpuscular Zpvpfa8278-43-72 05:43:00* Test Item Value Reference Range Interpretation Comments Mean Corpuscular Volume (test code = 787-2) 88.1 81-99 [facility] McAllenMean Corpuscular Hwoytttqxl0904-40-11 05:43:00* Test Item Value Reference Range Interpretation Comments Mean Corpuscular Hemoglobin (test code = 785-6) 30.1 28-32 [facility] McAllenMean Corpuscular Hemoglobin Concent 2018-10-10 05:43:00* Test Item Value Reference Range Interpretation Comments Mean Corpuscular Hemoglobin Concent (test code = 786-4) 34.2 31-35 [facility] McAllenRed Cell Distribution Nccax0024-80-52 05:43:00* Test Item Value Reference Range Interpretation Comments Red Cell Distribution Width (test code = 49228-4) 13.0 11.7 -14.4 [facility] McAllenPlatelet Pbzcf3953-55-71 05:43:00* Test Item Value Reference Range Interpretation Comments Platelet Count (test code = 777-3) 201 140-360 [facility] McAllenNeutrophils (%) (Auto)2018-10-10 05:43:00 * Test Item Value Reference Range Interpretation Comments Neutrophils (%) (Auto) (test code = 60428-3) 77.0 38.7-80.0 [facility] McAllenLymphocytes (%) (Auto)2018-10-10 05:43:00 * Test Item Value Reference Range Interpretation Comments Lymphocytes (%) (Auto) (test code = 736-9) 15.8 18.0-39.1 L [facility] McAllenMonocytes (%) (Auto)2018-10-10 05:43:00* Test Item Value Reference Range Interpretation Comments Monocytes (%) (Auto) (test code = 5905-5) 5.1 4.4-11.3 [facility]AllenEosinophils (%) (Auto)2018-10-10 05:43:00 * Test Item Value Reference Range Interpretation Comments Eosinophils (%) (Auto) (test code = 713-8) 1.3 0.0-6.0 [facility]AllenBasophils (%) (Auto)2018-10-10 05:43:00* Test Item Value Reference Range Interpretation Comments Basophils (%) (Auto) (test code = 706-2) 0.6 0.0-1.0 [facility] %2018-10-10 05:43:00* Test Item Value Reference Range Interpretation Comments IM GRANULOCYTES % (test code = IM GRANULOCYTES %) 0.2 0.0- 1.0 [facility]AllenNeutrophils # (Auto)2018-10-10 05:43:00* Test Item Value Reference Range Interpretation Comments Neutrophils # (Auto) (test code = 751-8) 3.6 2.1-6.9 [facility]AllenLymphocytes # (Auto)2018-10-10 05:43:00* Test Item Value Reference Range Interpretation Comments Lymphocytes # (Auto) (test code = 71420-2) 0.7 1.0-3.2 L [facility]AllenMonocytes # (Auto)2018-10-10 05:43:00* Test Item Value Reference Range Interpretation Comments Monocytes # (Auto) (test code = 742-7) 0.2 0.2-0.8 [facility]osin[facility] # (Auto)2018-10-10 05:43:00* Test Item Value Reference Range Interpretation Comments Eosinophils # (Auto) (test code = 711-2) 0.1 0.0-0.4 [facility] (Auto)2018-10-10 05:43:00* Test Item Value Reference Range Interpretation Comments Basophils # (Auto) (test code = 704-7) 0.0 0.0-0.1 [facility]AllenAbsolute Immature Granulocyte (auto 2018-10-10 05:43:00* Test Item Value Reference Range Interpretation Comments Absolute Immature Granulocyte (auto (mia t code = Absolute Immature Granulocyte (auto) 0.01 0-0.1 [facility] [id number] 13:49:00* Test Item Value Reference Range Interpretation Comments UA COLOR (test code = COLU) YELLOW YELLOW UA APPEARANCE (test code = APPU) CLEAR CLEAR UA GLUCOSE DIPSTICK (test code = DGLUU) NORMAL mg/dL NEGATIVE UA BILIRUBIN DIPSTICK (test code = BILU) NEGATIVE mg/dL NEGATIVE UA KETONE DIPSTICK (test code = KETU) neg mg/dL NEGATIVE UA SPECIFIC GRAVITY (test code = SGU) 1.015 1.001-1.035 UA BLOOD DIPSTICK (test code = FLOYD) 25 (1+) Gustavo/uL NEGATIVE A UA PH DIPSTICK (test code = ERIC) 6.5 5.0-8.0 UA PROTEIN DIPSTICK (test code = PROU) neg mg/dL Neg-15 UA UROBILINIOGEN DIPSTICK (test code = URO) norm mg/dL 0.0-0.2 UA NITRITE DIPSTICK (test code = ELODIA) NEGATIVE NEGATIVE UA LEUKOCYTE ESTERASE DIPSTICK (test code = LEUU) 25 (Trace) uL NEG ATIVE A UA WBC (test code = WBCU) 0-5 per HPF 0-5 IN SOME URINARY TRACT INFECTIONS THERE MAY NOT BE ENOUGHWBCs IN THE URINE TO TRIGGER AN AUTOMATIC (REFLEX) URINECULTURE. A SEPERATE ORDER FOR URINE CULTURE IS RECOMMENDEDIF THERE IS STRONG SUPPORT FOR A URINARY TRACT INFECTIONCLINICALLY. UA RBC (test code = RBCU) 3-5 per HPF 0-5 UA EPITHELIAL CELLS (test code = EPIU) Few (2-5/hpf) per HPF Few UA BACTERIA (test code = BACU) FEW per HPF NONE UA MUCUS (test code = MUCU) FEW per LPF NONE-FEW Urine Source? Clean CatchURINALYSIS [id number] 13:41:00* Test Item Value Reference Range Interpretation Comments UA COLOR (test code = COLU) YELLOW YELLOW UA APPEARANCE (test code = APPU) CLEAR CLEAR UA GLUCOSE DIPSTICK (test code = DGLUU) NORMAL mg/dL NEGATIVE UA BILIRUBIN DIPSTICK (test code = BILU) NEGATIVE mg/dL NEGATIVE UA KETONE DIPSTICK (test code = KETU) neg mg/dL NEGATIVE UA SPECIFIC GRAVITY (test code = SGU) 1.015 1.001-1.035 UA BLOOD DIPSTICK (test code = FLOYD) 25 (1+) Gustavo/uL NEGATIVE A UA PH DIPSTICK (test code = ERIC) 6.5 5.0-8.0 UA PROTEIN DIPSTICK (test code = PROU) neg mg/dL Neg-15 UA UROBILINIOGEN DIPSTICK (test code = URO) norm mg/dL 0.0-0.2 UA NITRITE DIPSTICK (test code = ELODIA) NEGATIVE NEGATIVE UA LEUKOCYTE ESTERASE DIPSTICK (test code = LEUU) 25 (Trace) uL NEG ATIVE A UA WBC (test code = WBCU) per HPF 0-5 Urine Source? Clean CatchSCR MAMM BILATERAL JALYN CAD [id number] 10:31:05 - SCR MAMM BILATERAL JALYN CAD DIGITALBILATERAL DIGITAL SCREENING MAMMOGRAM 3D/2D WITH CAD: 08/30/2018CLINICAL: Asymptomatic. Digital breast tomosynthesis was p erformed in addition to routine CC and MLO views. Current mammographic images w ere evaluated by either a [facility] M-Vu or a [employer] CAD (computer ai ded detection system). Comparison is made to exams dated 08/02/2017 mammogram, 07/10/2016 mammogram, and 10/11/2015 mammogram - [facility]. The tissue of both breasts is heterogeneously [...] 10:31:05 Imaging T echnologist: Kathleen CRAIG, [facility] sent: BIRADS 1- 2 Normal Mammogram BI-RADS: 2 [id number] 14:13:00* Test Item Value Reference Range Interpretation Comments SODIUM (BEAKER) (test code = 381) 144 meq/L 136-145 POTASSIUM (BEAKER) (test code = 379) 4.9 meq/L 3.5-5.1 CHLORIDE (BEAKER) (test code = 382) 106 meq/L 98-107 CO2 (BEAKER) (test code = 355) 30 meq/L 22-29 H BUN AND [id number] 14:13:00* Test Item Value Reference Range Interpretation Comments BLOOD UREA NITROGEN (BEAKER) (test code = 354) 15 mg/dL 7-21 CREATININE (BEAKER) (test code = 358) 0.79 mg/dL 0.57-1.25 EGFR (BEAKER) (test code = 1092) 74 mL/min/1.73 sq m ESTIMATED GFR IS NOT ACCURATE CREATININE CLEARANCE IN PREDICTING GLOMERULAR FILTRATION RATE. ESTIMATED GFR IS NOT APPLICABLE FOR DIALYSIS PATIENTS. [id number] 13:31:00* Test Item Value Reference Range Interpretation Comments HEMOGLOBIN (BEAKER) (test code = 410) 12.3 GM/DL 11.2-15.7 US ABDOMEN COMPLETE [place] [address] Patient Name: JOHN PULIDO MR #: [id number] : 1960 Age/Sex: 56/F Req #: [id number] Adm Physician: Ordered by: KIERSTEN العراقي MD Report #: [id number] Location: Room/Bed: Procedure: [id number] US/US ABDOMEN COMPLETE Ex am Date: Exam [...] Otherwise unremarkable abdominal ultrasound. Dictated by: Ottoniel Jackson M.D. on 04/13/2017 at 11:29 Electronically appro yonathan by: Ottoniel Jackson M.D. on 04/13/2017 at 11:29 Dictated By: BLAKE JACKSON MD 1129 Trans cribed By: THU on 04/13/17 1129 COPY TO: KIERSTEN العراقي MD
[2020-04-05] MEDS ORDERED: SODIUM CHLORIDE 0.9% 1000ML 1,000 ML IV STA (15:15)
[2020-04-05] MEDS ORDERED: PANTOPRAZOLE 40 MG 10ML VIAL IV STA (15:15)
[2020-04-05] MEDS ORDERED: ONDANSETRON HCL INJ 2MG/ML 2ML 2 MG/ML VIAL IV STA (15:15)
[2020-04-05 15:25] LABS: BASOPHILS % 0.4 % (0.0-1.0); EOSINOPHILS # (AUTO) 0.1 (0.0-0.4); EOSINOPHILS % 0.5 % (0.0-6.0); HEMATOCRIT 40.7 % (34.2-44.1); LYMPHOCYTES # (AUTO) 2.1 (1.0-3.2); LYMPHOCYTES % 21.5 % (18.0-39.1); MEAN CORPUSCULAR HEMOGLOBIN 30.1 pg (28-32); MEAN CORPUSCULAR HGB CONC 31.9 g/dL (31-35); MEAN CORPUSCULAR VOLUME 94.2 fL (81-99); MONOCYTES # (AUTO) 0.5 (0.2-0.8); MONOCYTES % 5.4 % (4.4-11.3); NEUTROPHILS # (AUTO) 6.9 (2.1-6.9); NEUTROPHILS % 71.8 % (38.7-80.0); PLATELET COUNT 256 x10e3/uL (140-360); RED BLOOD COUNT 4.32 x10e6/uL (3.6-5.1); RED CELL DISTRIBUTION WIDTH 13.4 % (11.7-14.4)
[2020-04-05 15:33] LABS: INR 0.83; PROTHROMBIN TIME 11.8 seconds (11.9-14.5)
[2020-04-05 15:34] LABS: PARTIAL THROMBOPLASTIN TIME 24.5 seconds (23.8-35.5)
[2020-04-05] MEDS ORDERED: KETOROLAC TROMETHAMINE 30 MG/ML VIAL ONE (15:58)
[2020-04-05 16:06] LABS: ALANINE AMINOTRANSFERASE 20 IU/L (0-55); ALKALINE PHOSPHATASE 78 IU/L (40-150); ANION GAP 17.5 mmol/L (8-16); BLOOD UREA NITROGEN 14 mg/dL (7-26); BUN/CREATININE RATIO 16 (6-25); CALCIUM 9.2 mg/dL (8.4-10.2); CARBON DIOXIDE 22 mmol/L (22-29); CHLORIDE 101 mmol/L (98-107); CREATINE KINASE 27 IU/L (29-168); CREATININE, SERUM 0.85 mg/dL (0.57-1.11); EST GLOMERULAR FILTRATION RATE > 60 ML/MIN (60-); GLUCOSE 99 mg/dL (74-118); LIPASE 31 U/L (8-78); POTASSIUM 3.5 mmol/L (3.5-5.1); SODIUM 137 mmol/L (136-145)
[2020-04-05 16:15] LABS: BILIRUBIN,URINE NEGATIVE (NEGATIVE); CLARITY,URINE CLEAR (CLEAR); COLOR,URINE YELLOW (YELLOW); KETONES,URINE NEGATIVE (NEGATIVE); LEUKOCYTE ESTERASE ,URINE SMALL (NEGATIVE); NITRITE,URINE NEGATIVE (NEGATIVE); PROTEIN,URINE DIPSTICK NEGATIVE (NEGATIVE); URINE UROBILINOGEN 0.2 mg/dL (0.2 - 1)
[2020-04-05 16:16] LABS: BACTERIA,URINE FEW /HPF; EPITHELIAL CELLS,URINE FEW /LPF; MUCUS,URINE FEW (RARE); RBC,URINE 0-5 /HPF (0-5)
--- NOTE | 2020-04-05 16:58 | Diagnostic Imaging Report ---
EXAM: CT Abdomen and Pelvis WITHOUT intravenous contrast INDICATION: Generalized abdominal pain. COMPARISON: CT dated 10/10/2018 TECHNIQUE: Abdomen and pelvis were scanned utilizing a multidetector helical scanner from the lung base to the pubic symphysis without administration of IV contrast. Coronal and sagittal reformations were obtained. Routine technique was performed. IV CONTRAST: None ORAL CONTRAST: None COMPLICATIONS: None RADIATION DOSE: Total DLP: 412 mGy*cm Dose modulation, iterative reconstruction, and/or weight based adjustment of the mA/kV was utilized to reduce the radiation dose to as low as reasonably achievable. FINDINGS: LOWER THORAX: Normal. HEPATOBILIARY: No focal hepatic lesions. No intrahepatic biliary ductal dilatation. Stable mild extrahepatic biliary dilatation with the common bile duct measuring up to 1.0 cm. Gallbladder surgically absent. Trace central pneumobilia is noted, likely related to cholecystectomy. SPLEEN: No splenomegaly. PANCREAS: No focal masses or ductal dilatation. ADRENALS: No adrenal nodules. KIDNEYS/URETERS: No hydronephrosis, stones, or solid mass lesions. PELVIC ORGANS/BLADDER: Unremarkable. PERITONEUM / RETROPERITONEUM: No free air or fluid. LYMPH NODES: No lymphadenopathy. VESSELS: Unremarkable. GI TRACT: Limited evaluation due to lack of oral contrast. Stomach and portions of the colon are decompressed limiting evaluation. Normal appendix is noted. A few diverticula of the descending and sigmoid colon are noted without surrounding inflammatory changes. Evaluation for wall thickening is nondiagnostic due to underdistended state. Negative for obstruction. BONES AND SOFT TISSUES: Negative for acute osseous abnormality. No suspicious lytic or blastic lesion is identified. Soft tissues are unremarkable. IMPRESSION: 1. Negative for acute abdominopelvic process. 2. Mild extrahepatic biliary dilatation and trace central pneumobilia probably related to postcholecystectomy state. Correlate with liver enzymes. 3. Uncomplicated colonic diverticulosis. Signed by: Jamie Martin MD on 04/05/2020 4:55 PM
--- NOTE | 2020-04-05 17:05 | Diagnostic Imaging Report ---
TECHNIQUE: Frontal view of the chest. INDICATION: ^ABD PAIN ^[id number] ^1615 COMPARISON: 04/25/2019 DISCUSSION: Limited evaluation due to portable technique. Lines and hardware: None Heart and mediastinum: Cardio venous sinus silhouette is mildly enlarged, similar to prior exam. Trachea projects midline. Mild central vascular congestion is noted, accentuated by technique. Lungs and pleura: No focal airspace consolidation. No pleural effusion. No pneumothorax. Soft tissues and bones: No acute abnormality. IMPRESSION: Negative for acute intrathoracic process. Signed by: Jamie Martin MD on 04/05/2020 5:02 PM
[2020-04-05] MEDS ORDERED: CEFTRIAXONE SOD 1 GM/NS 50 ML 50 ML IV ONE (19:30)
--- NOTE | 2020-04-05 19:43 | Emergency Department Note ---
History of Present Illnes History of Present Illness Chief Complaint: COVID PUI History of Present Illness This is a 59 year old female THIS AM BEGAN HAVING DIFFUSE ABDOMINAL PAIN. DENIES ANY N/V OR DIARRHEA. LAST BM WAS 3 HRS AGO. SEEN [address] [facility] AND TOLD SHE HAD DIVERTICULOSIS. Historian: Patient Arrival Mode: Car EMS Treatment GRANTS DIRECTOR: IV Additional Treatment GRANTS DIRECTOR: NONE Plant Assigner Required: No Onset (how long ago): hour(s) Location: ABDOMEN Quality: PAIN Radiation: Reports non-radiation Severity: moderate Onset quality: gradual Timing of current episode: intermittent Chronicity: recurrent Context: Denies recent illness Relieving factors: none Exacerbating factors: none Associated symptoms: Reports denies other symptoms Treatments prior to arrival: none Past Medical/Family History Physician Review I have reviewed the patient's past medical and family history. Any updates have been documented here. Past Medical History Recent Fever: No Clinical Suspicion of Infectio: No New/Unexplained Change in Ment: No Past Medical History: Hypertension, UTI's, GERD Other Medical History: HERNIA ARTHRITIS OSTEOPOROSIS Past Surgical History: Cholecysctectomy, Tubal Ligation Other Surgery: LEFT KNEE SURGERY Social History Smoking Cessation: Never Smoker Counseling Performed: No Alcohol Use: None Any Illegal Drug Use: No TB Exposure/Symptoms: No Physically hurt or threatened: No Family History Family history of heart diseas: No Other Last Tetanus: OOD Any Pre-Existing Lines (PICC,: No Review of Systems Review of Systems Constitutional: Reports no symptoms EENTM: Reports no symptoms Cardiovascular: Reports no symptoms Respiratory: Reports no symptoms Gastrointestinal: Reports as per HPI Genitourinary: Reports no symptoms Musculoskeletal: Reports no symptoms Integumentary: Reports no symptoms Neurological: Reports no symptoms Psychological: Reports no symptoms Endocrine: Reports no symptoms Hematological/Lymphatic: Reports no symptoms Physical Exam Related Data Allergies: Coded Allergies: morphine (Verified Allergy, Unknown, 04/25/19) Triage Vital Signs Vital Signs Date Time Temp Pulse Resp B/P (MAP) Pulse Ox O2 Delivery O2 Flow Rate FiO2 04/05/20 14:03 97.0 64 18 112/59 100 Vital signs reviewed: Yes Physical Exam CONSTITUTIONAL Constitutional: Present well-developed, Present well-nourished, Present obese HENT HENT: Present normocephalic, Present atraumatic, Present oropharynx clear/moist, Present nose normal HENT L/R: Present left ext ear normal, Present right ext ear normal EYES Eyes: Reports PERRL, Reports conjunctivae normal NECK Neck: Present ROM normal PULMONARY Pulmonary: Present effort normal, Present breath sounds normal CARDIOVASCULAR Cardiovascular: Present regular rhythm, Present heart sounds normal, Present capillary refill normal, Present normal rate GASTROINTESTINAL Abdominal: Present soft, Present bowel sounds normal, Present tender (MILD LOWER ABD TENDERNESS WITHOUT R/G) GENITOURINARY Genitourinary: Present exam deferred SKIN Skin: Present warm, Present dry MUSCULOSKELETAL Musculoskeletal: Present ROM normal NEUROLOGICAL Neurological: Present alert, Present oriented x 3, Present no gross motor or sensory deficits PSYCHOLOGICAL Psychological: Present mood/affect normal, Present judgement normal Results Laboratory Result Diagram: 04/05/20 1408 04/05/20 1408 Laboratory Laboratory Tests Test 04/05/20 14:08 White Blood Count 9.67 x10e3/uL (4.8-10.8) Red Blood Count 4.32 x10e6/uL (3.6-5.1) Hemoglobin 13.0 g/dL (12.0-16.0) Hematocrit 40.7 % (34.2-44.1) Mean Corpuscular Volume 94.2 fL (81-99) Mean Corpuscular Hemoglobin 30.1 pg (28-32) Mean Corpuscular Hemoglobin Concent 31.9 g/dL (31-35) Red Cell Distribution Width 13.4 % (11.7-14.4) Platelet Count 256 x10e3/uL (140-360) Neutrophils (%) (Auto) 71.8 % (38.7-80.0) Lymphocytes (%) (Auto) 21.5 % (18.0-39.1) Monocytes (%) (Auto) 5.4 % (4.4-11.3) Eosinophils (%) (Auto) 0.5 % (0.0-6.0) Basophils (%) (Auto) 0.4 % (0.0-1.0) Neutrophils # (Auto) 6.9 (2.1-6.9) Lymphocytes # (Auto) 2.1 (1.0-3.2) Monocytes # (Auto) 0.5 (0.2-0.8) Eosinophils # (Auto) 0.1 (0.0-0.4) Basophils # (Auto) 0.0 (0.0-0.1) Absolute Immature Granulocyte (auto 0.04 x10e3/uL (0-0.1) Prothrombin Time 11.8 seconds (11.9-14.5) Prothromb Time International Ratio 0.83 Activated Partial Thromboplast Time 24.5 seconds (23.8-35.5) Urine Color Yellow (YELLOW) Urine Clarity Clear (CLEAR) Urine pH 7 (5 - 7) Urine Specific Rhodes 1.020 (1.010-1.025) Urine Protein Negative (NEGATIVE) Urine Glucose (UA) Negative (NEGATIVE) Urine Ketones Negative (NEGATIVE) Urine Blood Trace (NEGATIVE) Urine Nitrite Negative (NEGATIVE) Urine Bilirubin Negative (NEGATIVE) Urine Urobilinogen 0.2 mg/dL (0.2 - 1) Urine Leukocyte Esterase Small (NEGATIVE) Urine RBC 0-5 /HPF (0-5) Urine WBC 11-20 /HPF (0-5) Urine Epithelial Cells Few /LPF (NONE) Urine Bacteria Few /HPF (NONE) Urine Mucus Few (RARE) Sodium Level 137 mmol/L (136-145) Potassium Level 3.5 mmol/L (3.5-5.1) Chloride Level 101 mmol/L (98-107) Carbon Dioxide Level 22 mmol/L (22-29) Anion Gap 17.5 mmol/L (8-16) Blood Urea Nitrogen 14 mg/dL (7-26) Creatinine 0.85 mg/dL (0.57-1.11) Estimat Glomerular Filtration Rate > 60 ML/MIN (60-) BUN/Creatinine Ratio 16 (6-25) Glucose Level 99 mg/dL (74-118) Calcium Level 9.2 mg/dL (8.4-10.2) Total Bilirubin 0.5 mg/dL (0.2-1.2) Aspartate Amino Transf (AST/SGOT) 21 IU/L (5-34) Alanine Aminotransferase (ALT/SGPT) 20 IU/L (0-55) Alkaline Phosphatase 78 IU/L (40-150) Creatine Kinase 27 IU/L (29-168) Creatine Kinase MB 0.70 ng/mL (0-5.0) Troponin I 0.009 ng/mL (0-0.300) B-Type Natriuretic Peptide 11.7 pg/mL (0-100) Total Protein 8.0 g/dL (6.5-8.1) Albumin 4.0 g/dL (3.5-5.0) Globulin 4.0 g/dL (2.3-3.5) Albumin/Globulin Ratio 1.0 (0.8-2.0) Lipase 31 U/L (8-78) Lab results reviewed: Yes Imaging Imaging results reviewed: Yes Assessment & Plan Medical Decision Making MDM CBC, CHEM, LIPASE, UA/CX, CT A/P - EVAL LEUKOCYTOSIS, UTI, PANCREATITIS, COLITIS, DIVERTICULITIS Reassessment Reassessment DC HOME, NEVA, F/U PCP AND GI M ZAMARRIPA, CEFTIN 500 BID X 10 DAYS Assessment & Plan Final Impression: (1) Abdominal pain (2) UTI (urinary tract infection) Depart Disposition: HOME, SELF-CARE Last Vital Signs Date Time Temp Pulse Resp B/P (MAP) Pulse Ox O2 Delivery O2 Flow Rate FiO2 04/05/20 14:03 97.0 64 18 112/59 100 Home Meds Reported Medications Dicyclomine Hcl (DICYCLOMINE HCL) 10 Mg Capsule, 1 CAP PO DAILY 03/27/20 Alendronate Sodium (ALENDRONATE SODIUM) 70 Mg Tablet, 1 TAB PO ONCE for 1 Day 03/27/20 Omeprazole (OMEPRAZOLE) 40 Mg Capsule.dr, 1 CAP PO DAILY 03/27/20 Losartan/Hydrochlorothiazide (LOSARTAN-HCTZ 100-12.5 MG TAB) 1 Each Tablet 10/10/18 Medications in the ED Pantoprazole Sodium 40 mg ONCE STAT IV ; Start 04/05/20 at 15:15; Stop 04/05/20 at 15:25; Status DC Ondansetron HCl 4 mg ONCE STAT IV ; Start 04/05/20 at 15:15; Stop 04/05/20 at 15:25; Status DC Sodium Chloride 1,000 ml @ 0 mls/hr Q0M STAT IV ; Start 04/05/20 at 15:15; Stop 04/05/20 at 15:20; Status DC Ketorolac Tromethamine 30 mg STK-MED ONCE .ROUTE ; Start 04/05/20 at 15:58; Stop 04/05/20 at 15:52; Status DC Ceftriaxone Sodium 50 ml @ 100 mls/hr ONCE ONCE IV ; Start 04/05/20 at 19:30; Stop 8/31/20 at 19:59 NATHANAEL SANCHEZ MD Apr 05, 2020 19:43
[2020-04-05 20:00] VITALS: BP 114/62
== END 2020-04-05 21:00 | disposition home or self-care (01) ==
LOC: ER 14:16
DX: R10.84 Generalized abdominal pain (principal); N39.0 Urinary tract infection, site not specified; I10 Essential (primary) hypertension; K21.9 Gastro-esophageal reflux disease without esophagitis
CPT/HCPCS: 36415; 71045; 74176; 80053; 81001; 82550; 82553; 83690; 83880; 84484; 85025; 85610; 85730; 87086; 99284; J0696; J1885

== ENCOUNTER 2024-09-30 11:00 | Outpatient (RCR) | payer MEDICARE | END 2024-10-03 | LOC: PT 11:00 | PROVIDERS: ATTEND Student in an Organized Health Care Education/Training Program | DX: M50.90 Cervical disc disorder, unspecified, unspecified cervical region (principal); M51.9 Unspecified thoracic, thoracolumbar and lumbosacral intervertebral disc disorder ==

== ENCOUNTER 2024-10-24 11:00 | Outpatient (RCR) | payer MEDICARE | END 2024-11-03 | LOC: PT 11:00 | PROVIDERS: ATTEND Student in an Organized Health Care Education/Training Program | DX: M50.80 Other cervical disc disorders, unspecified cervical region (principal); M51.86 Other intervertebral disc disorders, lumbar region ==

== ENCOUNTER → 2025-01-21 | Outpatient (REF) | payer MEDICARE | LOC: NM 08:26 | PROVIDERS: ATTEND Physician Assistant Medical | DX: R10.13 Epigastric pain (principal); R14.0 Abdominal distension (gaseous); R11.0 Nausea; I10 Essential (primary) hypertension; Z78.9 Other specified health status; Z68.32 Body mass index [BMI] 32.0-32.9, adult; Z71.3 Dietary counseling and surveillance | CPT/HCPCS: 78264; A9541 ==

== ENCOUNTER 2025-05-06 12:55 | Emergency (ER) | payer MEDICARE ==
[~2025-05-06] VITALS: Ht 162.6 cm; Wt 85.3 kg
[2025-05-06 13:10] VITALS: PULSE 61; RESP 20; TEMP 98.4
[2025-05-06 13:41] LABS: BASOPHILS % 0.2 % (0.0-1.0); EOSINOPHILS % 0.0 % (0.0-6.0); LYMPHOCYTES % 20.7 % (18.0-39.1); MONOCYTES % 8.6 % (4.4-11.3); NEUTROPHILS % 69.1 % (38.7-80.0); RED CELL DISTRIBUTION WIDTH 13.2 % (11.7-14.4)
[2025-05-06 14:02] LABS: EST GLOMERULAR FILTRATION RATE 89.0 ML/MIN (>=60)
[2025-05-06] MEDS: SODIUM CHLORIDE FLUSH 10 ML SYR IV PRN (14:28)
[2025-05-06] MEDS: KETOROLAC TROMETHAMINE 30 MG/ML VIAL IV STA (14:28)
[2025-05-06 14:42] LABS: EPITHELIAL CELLS,URINE MANY /LPF; LEUKOCYTE ESTERASE ,URINE MODERATE (NEGATIVE); PROTEIN,URINE DIPSTICK NEGATIVE (NEGATIVE); URINE UROBILINOGEN 0.2 mg/dL (0.2 - 1); WBC,URINE (MAN) >50 /HPF (0-5)
[2025-05-06 14:44] VITALS: BP 134/76; PULSE 53; RESP 18; TEMP 98.4; O2SAT 100
[2025-05-06] MEDS ORDERED: CEPHALEXIN500 MG PO (14:55)
== END 2025-05-06 15:25 | disposition home or self-care (01) ==
LOC: ER 13:00
DX: R05.9 Cough, unspecified (principal); U07.1 COVID-19; N39.0 Urinary tract infection, site not specified; I10 Essential (primary) hypertension; K21.9 Gastro-esophageal reflux disease without esophagitis; M81.0 Age-related osteoporosis without current pathological fracture
CPT/HCPCS: 36415; 71046; 80053; 81001; 85025; 87086; 99283; J1885